=== PATIENT | male | born 1965 | race Caucasian/White ===

== ENCOUNTER → 2016-08-31 | Outpatient (CLI) | payer OTHER ==
[~2016-08-31] MED LIST: ASPEC81 PO; ASPI81TA28 PO; CLB200 PO; EPP3/2; HYDR-5688 PO; LISI-725 PO; LISI-787 PO; ONDA8TAB6 PO; SIMV20TA2 PO; VENL-271 PO; VENL150T33 PO
--- NOTE | 2016-08-31 10:09 | DIAGNOSTIC IMAGING REPORT ---
CT OF THE CHEST WITHOUT IV CONTRAST CLINICAL HISTORY: Pulmonary nodule. COMPARISON STUDY: Chest CT September 01, 2015 and March 04, 2016. CT DOSE: 697.60 mGycm TECHNIQUE: Axial images of the chest were obtained without IV contrast. Images were reviewed in the axial, sagittal, and coronal planes. IV contrast was not administered for this examination. FINDINGS: No enlarged axillary, mediastinal or hilar lymph nodes are present. Mild dilatation of the ascending aorta, measuring 4.1 cm, is unchanged. The size of the heart is normal. There is no pericardial effusion. Central airways are patent. Deformity of multiple left-sided ribs is again noted. Linear lingular and left lower lobe opacity is similar to prior exam and suggests atelectasis or scarring. A 4 mm right middle lobe nodule shown on image 148 of 342 is unchanged since chest CT of September 01, 2015. A 3 mm subpleural nodule within the right upper lobe shown on image 148 is also unchanged. There are no new nodules. No pneumothorax or pleural effusion is present. 1.2 cm hypodense right hepatic lobe lesion is suboptimal assessed on this unenhanced exam but is unchanged and likely benign. IMPRESSION: 1. No change in two right lung nodules measuring up to 4 mm. These are likely benign. A follow-up chest CT in one year is recommended to ensure stability. 2. Linear lingular and left lower lobe opacity which is similar to prior exams and suggests scarring or atelectasis. Electronically signed by: Milo Álvarez M.D. 08/31/2016 10:08 AM Dictated Date/Time: 08/31/2016 9:44 AM
== END | disposition home or self-care (01) ==
LOC: C.CTS 09:20
PROVIDERS: ATTEND Internal Medicine Pulmonary Disease
DX: R91.8 Other nonspecific abnormal finding of lung field (principal)

== ENCOUNTER → 2016-09-28 | Outpatient (CLI) | payer OTHER ==
[2016-09-28 12:47] LABS: CHOLESTEROL/HDL RATIO 3.4; PROSTATE SPECIFIC ANTIGEN 0.552 ng/ml (0.000-4.000)
[2016-09-28 12:56] LABS: ESTIMATED AVERAGE GLUCOSE 134 mg/dl; HA1C FLAG Normal (Normal)
== END | disposition home or self-care (01) ==
LOC: C.LABBFT 07:55
PROVIDERS: ATTEND Internal Medicine
DX: Z11.59 Encounter for screening for other viral diseases (principal); R73.01 Impaired fasting glucose; N52.9 Male erectile dysfunction, unspecified

== ENCOUNTER 2016-10-31 16:29 | Emergency (ER) | payer OTHER ==
[~2016-10-31] VITALS: Ht 177.8 cm; Wt 109.7 kg
[~2016-10-31 16:29] MED LIST changes: -ASPI81TA28 PO; -LISI-787 PO; -SIMV20TA2 PO; -VENL150T33 PO
[2016-10-31 16:47] VITALS: TEMP 36.7
[2016-10-31] MEDS ORDERED: SODIUM CHLORIDE 0.9% 1000ML 1,000 ML IV SCH (17:02)
[2016-10-31] MEDS ORDERED: OPTIRAY 320 IV PRN (17:15)
[2016-10-31 17:16] LABS: BASO % 0.6 %; BASO ABS # 0.04 K/uL (0-0.2); COMPLETE YES; EOS % 1.8 %; HEMATOCRIT 39.7 % (42-52); IG% 0.1 %; LYMPH % 32.1 %; LYMPH ABS # 2.15 K/uL (1.2-3.4); MEAN CELL VOLUME 86.9 fL (80-100); MEAN CORPUSCULAR HEMOGLOBIN 29.8 pg (25-34); MEAN CORPUSCULAR HGB CONC 34.3 g/dl (32-36); MEAN PLATELET VOLUME 11.2 fL (7.4-10.4); MONO % 6.6 %; NEUT % 58.8 %; PLATELET COUNT 204 K/uL (130-400); RED BLOOD COUNT 4.57 M/uL (4.7-6.1)
[2016-10-31 17:21] VITALS: O2SAT 98
--- NOTE | 2016-10-31 17:27 | DIAGNOSTIC IMAGING REPORT ---
HEAD CTA HISTORY: Mental status change stroke TECHNIQUE: Multiaxial CT images of the head were performed both before and after the intravenous administration of contrast to evaluate the major cerebral vessels. Maximum intensity projection images were also obtained. COMPARISON: None. FINDINGS: There is no mass, hematoma, midline shift, or acute infarct. Visualized intracranial internal carotid arteries, distal vertebral arteries, and basilar artery are widely patent. There is no significant stenosis, occlusion, or aneurysm seen within the bilateral ACAs, MCAs, or prop worker. IMPRESSION: No significant stenosis, occlusion, or aneurysm within the [place]. Negative unenhanced CT scan of the brain Electronically signed by: Steve Hudson M.D. 10/31/2016 5:25 PM Dictated Date/Time: 10/31/2016 5:22 PM
[2016-10-31 17:28] LABS: INR 0.9 (0.9-1.1); PARTIAL THROMBOPLASTIN RATIO 0.9; PROTHROMBIN TIME (PATIENT) 10.1 SECONDS (9.0-12.0)
--- NOTE | 2016-10-31 17:31 | DIAGNOSTIC IMAGING REPORT ---
NECK CTA HISTORY: Stroke mental status change TECHNIQUE: Multiaxial CT images of the neck were performed following the intravenous administration of contrast to evaluate the major cervical vessels. Maximum intensity projection images were also obtained. All measurements were calculated based on NASCET criteria. COMPARISON STUDY: None. FINDINGS: The aortic arch and proximal great vessels are widely patent. There is no significant stenosis, occlusion, or dissection identified within the bilateral common carotid, internal carotid, or vertebral arteries. Postoperative changes consistent with an anterior cervical fusion. No acute process of the cervical spine. IMPRESSION: No significant stenosis, occlusion, or dissection identified within the carotid or vertebral arteries. Electronically signed by: Steve Hudson M.D. 10/31/2016 5:29 PM Dictated Date/Time: 10/31/2016 5:26 PM
[2016-10-31] MEDS ORDERED: ASPI81TA28 PO (17:33)
[2016-10-31] MEDS ORDERED: VENL150T33 PO (17:33)
[2016-10-31] MEDS ORDERED: LISI-787 PO (17:33)
[2016-10-31] MEDS ORDERED: SIMV20TA2 PO (17:33)
[2016-10-31 17:36] LABS: ISTAT CREATININE 1.2 mg/dl (0.6-1.3); ISTAT HEMOGLOBIN 13.6 g/dl (14.0-18.0); ISTAT IONIZED CALCIUM 1.2 mmol/l (1.12-1.32)
[2016-10-31 17:47] LABS: BLOOD UREA NITROGEN 14 mg/dl (7-18); BUN/CREATININE RATIO 11.8 (10-20); CALCIUM 8.9 mg/dl (8.5-10.1); CARBON DIOXIDE 27 mmol/L (21-32); CHLORIDE 105 mmol/L (98-107); CKMB/CK RATIO 1.2 (0-3.0); GLUCOSE 95 mg/dl (70-99); POTASSIUM 3.8 mmol/L (3.5-5.1); SODIUM 139 mmol/L (136-145)
--- NOTE | 2016-10-31 17:50 | DIAGNOSTIC IMAGING REPORT ---
CHEST ONE VIEW PORTABLE CLINICAL HISTORY: Stroke dyspnea COMPARISON STUDY: 05/31/2011 FINDINGS: Small parenchymal infiltrate and/or atelectasis left midlung. Several old left-sided rib fractures. Right lung is clear. IMPRESSION: Parenchymal infiltrative and/or atelectatic changes left midlung. Electronically signed by: Steve Hudson M.D. 10/31/2016 5:48 PM Dictated Date/Time: 10/31/2016 5:47 PM
[2016-10-31 18:40] LABS: BENZODIAZEPINE, URINE NEG (NEG); COCAINE,URINE NEG (NEG); PHENCYCLIDINE, URINE NEG (NEG)
[2016-10-31] MEDS ORDERED: ASPIRIN 81 MG CHEW PO STA (19:39)
[2016-10-31 21:01] VITALS: Ht 177.8 cm; Wt 109.7 kg
[2016-10-31] MEDS ORDERED: GADAVIST IV PRN (22:15)
--- NOTE | 2016-10-31 22:34 | DIAGNOSTIC IMAGING REPORT ---
MRI OF THE BRAIN WITHOUT AND WITH IV CONTRAST CLINICAL HISTORY: TIA mental status change COMPARISON STUDY: No previous studies for comparison. TECHNIQUE: Utilizing a 1.5 Frida magnet and dedicated coil, multiplanar, multiecho imaging of the brain was performed pre and postcontrast administration. IV administration of 8 mL of Gadavist contrast was uneventful. FINDINGS: No evidence for an acute ischemic insult on diffusion-weighted images. Several very small foci of increased signal within the cerebellar as well as cerebral hemispheres suggesting chronic small vessel change. Several small cortical foci of increased signal inferior aspect left frontal lobe.. No evidence for abnormal postcontrast enhancement. Ventricular system is midline. No evidence for midline shift. Internal artery canals are symmetric. IMPRESSION: Minimal chronic small vessel change of aging. Otherwise negative study. No evidence for an acute ischemic event. Electronically signed by: Steve Hudson M.D. 10/31/2016 10:32 PM Dictated Date/Time: 10/31/2016 10:29 PM
[2016-10-31 23:08] VITALS: BP 131/89; PULSE 78; O2SAT 97
--- NOTE | 2016-10-31 23:28 | Medical Consult ---
Consultation Date of Consultation: Oct 31, 2016. Attending Physician: Dr. Negro Reason for Consultation: TIA/stroke like symptoms History of Present Illness 51-year-old male with past medical history of hypertension, borderline diabetes , head injury several years ago, degenerative arthritis of his left knee presented with complaints of numbness and tingling sensation on his face and left arm with started 2 hours prior to arrival. He also complains of mild headache and some neck stiffness however he denied any fevers or chills , nausea , vomiting. He denied any blurring of vision, diplopia, slurring of speech, weakness. Denies any drooping of his mouth, seizure episodes, gait changes . Denies any history of migraine, recent tick bites, rashes . He stated that he had a similar episode last week, at that time he had left- sided facial numbness and numbness in both his arms. He he was seen by his PCP at that time and was recommended to get an MRI and was started on aspirin and statin. He does have a history of head injury in 2013. He denies any chest pain, difficulty breathing, palpitations, dizziness. He does have a history of "irregular heartbeat" which is asymptomatic. He states that he had an echo last April which was essentially normal. Past Medical/Surgical History Hypertension, borderline diabetes, head injury, degenerative joint disease left knee. Family History Cancer Diabetes mellitus Heart disease Hypertension Lung disease Seizures Social History Smoking Status: Never Smoker Allergies Coded Allergies: Oxycodone (Verified Allergy, Severe, BAD HIVES-PER PT,ALLERGIC TO OXYCODONE CAN TAKE APAP/IBU/ASA, 10/31/16) Propoxyphene (Verified Allergy, Severe, HIVES RESP DISTRESS-PER PT, CAN TAKE APAP/ASA/IBU, 10/31/16) BEE STING (Verified Allergy, Mild, ANAPHYLACTIC, 10/31/16) Current Inpatient Medications Current Inpatient Medications Medications (Trade) Dose Ordered Sig/Homero Route Start Time Stop Time Status Last Admin Dose Admin Sodium Chloride (Nss 1000ml) 1,000 ml @ 50 mls/hr Q20H IV 10/31/16 17:02 11/30/16 17:01 10/31/16 17:02 50 MLS/HR Ioversol (Optiray 320) 100 ml UD PRN IV 10/31/16 17:15 11/04/16 17:14 Gadobutrol (Gadavist) 11 mmol UD PRN IV 10/31/16 22:15 11/04/16 22:14 Review of Systems Constitutional: No chills, No fever Eyes: No diplopia, No worsening of vision ENT: No hearing loss Respiratory: No cough, No sputum Cardiovascular: No chest pain Abdomen: No nausea, No pain, No vomiting Musculoskeletal: No joint pain Genitourinary - Male: No dysuria, No hematuria Neurologic: + numbness/tingling (face and left arm), No balance problems, No paralysis Psychiatric: No depression symptoms Endocrine: No fatigue Physical Exam Date Time Temp Pulse Resp B/P Pulse Ox O2 Delivery O2 Flow Rate FiO2 10/31/16 23:08 78 18 131/89 97 Room Air 10/31/16 22:38 86 16 131/87 99 10/31/16 21:29 84 15 93 10/31/16 21:01 Room Air 10/31/16 20:59 82 16 118/84 97 10/31/16 20:29 79 20 95 10/31/16 20:14 82 16 120/81 96 10/31/16 20:08 120/81 10/31/16 19:59 85 19 10/31/16 19:29 85 10 10/31/16 19:00 132/93 10/31/16 18:59 80 21 97 10/31/16 18:56 82 18 128/86 97 Room Air 10/31/16 18:45 128/86 10/31/16 18:30 136/88 10/31/16 18:29 80 22 98 10/31/16 18:15 135/82 10/31/16 18:00 129/80 10/31/16 17:59 86 20 93 10/31/16 17:48 84 10/31/16 17:45 132/81 10/31/16 17:42 83 16 126/79 95 Room Air 10/31/16 17:21 98 Room Air 10/31/16 16:47 36.7 98 18 133/83 92 Room Air General Appearance: WD/WN, no apparent distress Head: normocephalic Eyes: normal inspection ENT: normal ENT inspection, hearing grossly normal Neck: supple Respiratory/Chest: chest non-tender, lungs clear, normal breath sounds, no respiratory distress, no accessory muscle use Cardiovascular: regular rate, rhythm, no edema Abdomen/GI: normal bowel sounds, non tender, soft Back: normal inspection Extremities/Musculoskelatal: normal inspection, no calf tenderness, no pedal edema Neurologic/Psych: flatwork tier II-XII nml as tested, alert, normal mood/affect, oriented x 3 Skin: normal color Laboratory Results Last 24 Hours Test 10/31/16 16:50 10/31/16 16:57 10/31/16 17:06 10/31/16 17:20 White Blood Count 6.70 K/uL Red Blood Count 4.57 M/uL Hemoglobin 13.6 g/dL Hematocrit 39.7 % Mean Corpuscular Volume 86.9 fL Mean Corpuscular Hemoglobin 29.8 pg Mean Corpuscular Hemoglobin Concent 34.3 g/dl Platelet Count 204 K/uL Mean Platelet Volume 11.2 fL Neutrophils (%) (Auto) 58.8 % Lymphocytes (%) (Auto) 32.1 % Monocytes (%) (Auto) 6.6 % Eosinophils (%) (Auto) 1.8 % Basophils (%) (Auto) 0.6 % Neutrophils # (Auto) 3.94 K/uL Lymphocytes # (Auto) 2.15 K/uL Monocytes # (Auto) 0.44 K/uL Eosinophils # (Auto) 0.12 K/uL Basophils # (Auto) 0.04 K/uL RDW Standard Deviation 46.4 fL RDW Coefficient of Variation 15.0 % Immature Granulocyte % (Auto) 0.1 % Immature Granulocyte # (Auto) 0.01 K/uL Prothrombin Time 10.1 SECONDS Prothromb Time International Ratio 0.9 Activated Partial Thromboplast Time 23.4 SECONDS Partial Thromboplastin Ratio 0.9 Sodium Level 139 mmol/L Potassium Level 3.8 mmol/L Chloride Level 105 mmol/L Carbon Dioxide Level 27 mmol/L Anion Gap 7.0 mmol/L 18.0 mmol/L Blood Urea Nitrogen 14 mg/dl Creatinine 1.20 mg/dl Est Creatinine Clear Calc Drug Dose 89.3 ml/min Estimated GFR () 80.1 Estimated GFR (Non- 69.1 BUN/Creatinine Ratio 11.8 Random Glucose 95 mg/dl Calcium Level 8.9 mg/dl Total Creatine Kinase 239 U/L Creatine Kinase MB 2.8 ng/ml Creatine Kinase MB Ratio 1.2 Troponin I < 0.015 ng/ml Chemistry Specimen Hemolysis Bedside Prothrombin Time INR 0.9 Bedside Glucose 105 mg/dl Bedside Hemoglobin 13.6 g/dl Bedside Hematocrit 40 % Bedside Sodium 140 mEq/L Bedside Potassium 3.8 mEq/L Bedside Chloride 102 mEq/L Bedside Total CO2 25 mEq/l Bedside Blood Urea Nitrogen 15 mg/dl Bedside Creatinine 1.2 mg/dl Bedside Glucose (other) 89 mg/dl Bedside Ionized Calcium (Edgard) 1.20 mmol/l Urine Opiates Screen NEG Urine Methadone, Qualitative NEG Urine Barbiturates NEG Urine Phencyclidine (PCP) Level NEG Ur Amphetamine/Methamphetamine NEG MDMA (Ecstasy) Screen NEG Urine Benzodiazepines Screen NEG Urine Cocaine Metabolite NEG Urine Marijuana (THC) NEG Test 10/31/16 20:58 CHEST ONE VIEW PORTABLE CLINICAL HISTORY: Stroke dyspnea COMPARISON STUDY: 05/31/2011 FINDINGS: Small parenchymal infiltrate and/or atelectasis left midlung. Several old left-sided rib fractures. Right lung is clear. IMPRESSION: Parenchymal infiltrative and/or atelectatic changes left midlung. [~ rep ct add3]] NECK CTA HISTORY: Stroke mental status change TECHNIQUE: Multiaxial CT images of the neck were performed following the intravenous administration of contrast to evaluate the major cervical vessels. Maximum intensity projection images were also obtained. All measurements were calculated based on NASCET criteria. COMPARISON STUDY: None. FINDINGS: The aortic arch and proximal great vessels are widely patent. There is no significant stenosis, occlusion, or dissection identified within the bilateral common carotid, internal carotid, or vertebral arteries. Postoperative changes consistent with an anterior cervical fusion. No acute process of the cervical spine. IMPRESSION: No significant stenosis, occlusion, or dissection identified within the carotid or vertebral arteries. Electronically signed by: Steve Hudson M.D. 10/31/2016 5:29 PM Dictated Date/Time: 10/31/2016 5:26 PM [~ rep ct add3]] HEAD CTA HISTORY: Mental status change stroke TECHNIQUE: Multiaxial CT images of the head were performed both before and after the intravenous administration of contrast to evaluate the major cerebral vessels. Maximum intensity projection images were also obtained. COMPARISON: None. FINDINGS: There is no mass, hematoma, midline shift, or acute infarct. Visualized intracranial internal carotid arteries, distal vertebral arteries, and basilar artery are widely patent. There is no significant stenosis, occlusion, or aneurysm seen within the bilateral ACAs, MCAs, or plant safety engineer. IMPRESSION: No significant stenosis, occlusion, or aneurysm within the [place]. Negative unenhanced CT scan of the brain Electronically signed by: Steve Hudson M.D. 10/31/2016 5:25 PM Dictated Date/Time: 10/31/2016 5:22 PM [~ rep ct add3]] MRI OF THE BRAIN WITHOUT AND WITH IV CONTRAST CLINICAL HISTORY: TIA mental status change COMPARISON STUDY: No previous studies for comparison. TECHNIQUE: Utilizing a 1.5 Frida magnet and dedicated coil, multiplanar, multiecho imaging of the brain was performed pre and postcontrast administration. IV administration of 8 mL of Gadavist contrast was uneventful. FINDINGS: No evidence for an acute ischemic insult on diffusion-weighted images. Several very small foci of increased signal within the cerebellar as well as cerebral hemispheres suggesting chronic small vessel change. Several small cortical foci of increased signal inferior aspect left frontal lobe.. No evidence for abnormal postcontrast enhancement. Ventricular system is midline. No evidence for midline shift. Internal artery canals are symmetric. IMPRESSION: Minimal chronic small vessel change of aging. Otherwise negative study. No evidence for an acute ischemic event. Electronically signed by: Steve Hudson M.D. 10/31/2016 10:32 PM Dictated Date/Time: 10/31/2016 10:29 PM Assessment & Plan 51-year-old male with past medical history of hypertension, borderline diabetes , head injury in 2013 presented with strokelike symptoms which involved numbness in his face and on his left arm. He had a similar episode last week and his PCP had recommended an MRI and started him on aspirin and statin. His MRI however wasn't completed. He presented today with similar symptoms and Telemetry stroke consult was made with Shelli who also recommended a brain MRI , aspirin and stroke workup. The patient declined admission and only wanted to get an MRI as he felt that his symptoms had resolved. TIA: - Head CTA: No significant stenosis, occlusion, or aneurysm within the [place]. Negative unenhanced CT scan of the brain - CTA neck: No significant stenosis, occlusion, or dissection identified within the carotid or vertebral arteries - Chest x-ray: Parenchymal infiltrative and/or atelectatic changes left midlung - Brain MRI: Minimal chronic small vessel change of aging. Otherwise negative study. No evidence for an acute ischemic event. - Urine toxicology negative - Hypercoagulable workup including homocysteine, beta-2 microglobulin, antiphospholipid, lupus anticoagulant, anticardiolipin ordered - Continue aspirin 81 mg - Continue statin - Continue lisinopril/hydrochlorothiazide He was recommended to follow up with his primary care physician Dr. Savage and return to the ER if he experienced similar symptoms, weakness, headache, numbness or tingling. He will require further workup including a Holter monitor, echo. Hypercoagulable workup has been sent and is currently pending. Additional Copies To Pato Savage M.D. Resident Tracking Resident Involvement: Resident Care Provided Care Provided: [facility] Medicine Assessment and Plan Attending Addendum: I have physically seen and examined this patient, have directed their medical care, have supervised the medical residents activities, and agree with the H&P as noted above, with the following changes: NONE
--- NOTE | 2016-10-31 23:38 | EMERGENCY ROOM VISIT NOTE ---
History Report prepared by Ciaran: Cale Estevez Under the Supervision of: Dr. Umair James M.D. First contact with patient: 16:52 Chief Complaint: STROKE SYMPTOMS Stated Complaint: TIA/STROKE Nursing Triage Summary: Patient c/o of left sided weakness, slurring, left facial drooping. History of Present Illness The patient is a 51 year old male who presents to the Emergency Room with complaints of sudden left sided facial numbness beginning two hours prior to arrival. He associates lip numbness, left sided body numbness, neck stiffness, and a headache with today's symptoms. The patient states he experienced lip numbness at 1445 that spread to the left side of his face and arm. He notes he had a similar episode five days ago, in which he experienced left sided facial numbness, numbness in both arms, and numbness in his chest. The patient states he noticed neck stiffness following his episode last week, and he woke up with some neck stiffness this morning. He notes he also experienced a headache following last week's episode, and he also is currently experiencing a headache that began this morning. The patient states he saw his PCP last week, who ordered an MRI with concern for a TIA. He notes his legs do not feel weak. The patient states he had a severe head injury in 2013. As per , the patient appears to be moving his mouth less with speech. The patient notes he is borderline diabetic and has hypertension. Pt denies LOC, fevers, chills, diaphoresis, visual changes, chest pain, breathing difficulties, nausea, vomiting, abdominal pain, back pain, melena, hematochezia, urinary symptoms, weakness, lymphadenopathy, rash, or other complaints. 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 A total of ten systems were reviewed and were otherwise negative. Past Medical & Surgical Medical Problems: (1) Borderline diabetes (2) Degenerative joint disease of left knee (3) Flexion contracture of left knee (4) Hypertension (5) Left knee pain (6) Osteoarthritis of left knee Family History Cancer Diabetes mellitus Heart disease Hypertension Lung disease Seizures Social History Smoking Status: Never Smoker Marital Status: Occupation Status: employed Current/Historical Medications Scheduled Aspirin (Aspirin Ec), 81 MG PO DAILY Lisinopril/Hctz (Zestoretic 20MG/12.5MG), 1 TAB PO BID Simvastatin (Zocor), 20 MG PO QPM Venlafaxine Hcl (Venlafaxine Hcl Er), 150 MG PO DAILY Scheduled PRN Epinephrine (Epipen 2-Francisco), for ALLERGIC REACTION Hydrocodone/Acetaminophen 5MG/325MG ([place] 5MG/325MG), 1-2 TAB PO Q4HWA PRN for Pain Ondansetron Hcl (Zofran), 8 MG PO Q8H PRN for Nausea Allergies Coded Allergies: Oxycodone (Verified Allergy, Severe, BAD HIVES-PER PT,ALLERGIC TO OXYCODONE CAN TAKE APAP/IBU/ASA, 10/31/16) Propoxyphene (Verified Allergy, Severe, HIVES RESP DISTRESS-PER PT, CAN TAKE APAP/ASA/IBU, 10/31/16) BEE STING (Verified Allergy, Mild, ANAPHYLACTIC, 10/31/16) Physical Exam Vital Signs Date Time Temp Pulse Resp B/P Pulse Ox O2 Delivery O2 Flow Rate FiO2 10/31/16 23:08 78 18 131/89 97 Room Air 10/31/16 22:38 86 16 131/87 99 10/31/16 21:29 84 15 93 10/31/16 21:01 Room Air 10/31/16 20:59 82 16 118/84 97 10/31/16 20:29 79 20 95 10/31/16 20:14 82 16 120/81 96 10/31/16 20:08 120/81 10/31/16 19:59 85 19 10/31/16 19:29 85 10 10/31/16 19:00 132/93 10/31/16 18:59 80 21 97 10/31/16 18:56 82 18 128/86 97 Room Air 10/31/16 18:45 128/86 10/31/16 18:30 136/88 10/31/16 18:29 80 22 98 10/31/16 18:15 135/82 10/31/16 18:00 129/80 10/31/16 17:59 86 20 93 10/31/16 17:48 84 10/31/16 17:45 132/81 10/31/16 17:42 83 16 126/79 95 Room Air 10/31/16 17:21 98 Room Air 10/31/16 16:47 36.7 98 18 133/83 92 Room Air Physical Exam GENERAL: Awake, alert, well appearing, no distress HENT: Normocephalic, atraumatic. TM's normal. Oropharynx unremarkable. EYES: PERRL. EOMI. Normal conjunctiva. Sclera non-icteric. NECK: Supple. No nuchal rigidity. FROM. No JVD or bruit. RESPIRATORY: CTA CARDIAC: RRR. No murmur. ABDOMEN: Soft, non distended. No tenderness to palpation. No rebound or guarding. No masses. RECTAL: Deferred. MUSCULOSKELETAL: Unremarkable. No edema. No discoloration. Gross motor strength symmetric. NEURO: Cranial nerves 2-12 grossly intact except diminished sensation on left side of face. Normal sensorium. Subjective numbness and tingling in the left arm and leg. No sensory or motor deficits noted. Speech normal. No pronator drift. Normal rapid alternating hand movements. SKIN: No rash or jaundice noted. LYMPH: No adenopathy. Medical Decision & Procedures ER Provider Diagnostic Interpretation: X ray results as stated below per my interpretation and radiologist interpretation. Other radiology results as stated below per my review and radiologist interpretation CHEST ONE VIEW PORTABLE CLINICAL HISTORY: Stroke dyspnea COMPARISON STUDY: 05/31/2011 FINDINGS: Small parenchymal infiltrate and/or atelectasis left midlung. Several old left-sided rib fractures. Right lung is clear. IMPRESSION: Parenchymal infiltrative and/or atelectatic changes left midlung. Electronically signed by: Steve Hudson M.D. 10/31/2016 5:48 PM NECK CTA HISTORY: Stroke mental status change TECHNIQUE: Multiaxial CT images of the neck were performed following the intravenous administration of contrast to evaluate the major cervical vessels. Maximum intensity projection images were also obtained. All measurements were calculated based on NASCET criteria. COMPARISON STUDY: None. FINDINGS: The aortic arch and proximal great vessels are widely patent. There is no significant stenosis, occlusion, or dissection identified within the bilateral common carotid, internal carotid, or vertebral arteries. Postoperative changes consistent with an anterior cervical fusion. No acute process of the cervical spine. IMPRESSION: No significant stenosis, occlusion, or dissection identified within the carotid or vertebral arteries. Electronically signed by: Steve Hudson M.D. 10/31/2016 5:29 PM HEAD CTA HISTORY: Mental status change stroke TECHNIQUE: Multiaxial CT images of the head were performed both before and after the intravenous administration of contrast to evaluate the major cerebral vessels. Maximum intensity projection images were also obtained. COMPARISON: None. FINDINGS: There is no mass, hematoma, midline shift, or acute infarct. Visualized intracranial internal carotid arteries, distal vertebral arteries, and basilar artery are widely patent. There is no significant stenosis, occlusion, or aneurysm seen within the bilateral ACAs, MCAs, or hr manager. IMPRESSION: No significant stenosis, occlusion, or aneurysm within the [place]. Negative unenhanced CT scan of the brain Electronically signed by: Steve Hudson M.D. 10/31/2016 5:25 PM MRI OF THE BRAIN WITHOUT AND WITH IV CONTRAST CLINICAL HISTORY: TIA mental status change COMPARISON STUDY: No previous studies for comparison. TECHNIQUE: Utilizing a 1.5 Frida magnet and dedicated coil, multiplanar, multiecho imaging of the brain was performed pre and postcontrast administration. IV administration of 8 mL of Gadavist contrast was uneventful. FINDINGS: No evidence for an acute ischemic insult on diffusion-weighted images. Several very small foci of increased signal within the cerebellar as well as cerebral hemispheres suggesting chronic small vessel change. Several small cortical foci of increased signal inferior aspect left frontal lobe.. No evidence for abnormal postcontrast enhancement. Ventricular system is midline. No evidence for midline shift. Internal artery canals are symmetric. IMPRESSION: Minimal chronic small vessel change of aging. Otherwise negative study. No evidence for an acute ischemic event. Electronically signed by: Steve Hudson M.D. 10/31/2016 10:32 PM Laboratory Results 10/31/16 16:50 Red Blood Count 4.57, Mean Corpuscular Volume 86.9, Mean Corpuscular Hemoglobin 29.8, Mean Corpuscular Hemoglobin Concent 34.3, Mean Platelet Volume 11.2, Neutrophils (%) (Auto) 58.8, Lymphocytes (%) (Auto) 32.1, Monocytes (%) (Auto) 6.6, Eosinophils (%) (Auto) 1.8, Basophils (%) (Auto) 0.6, Neutrophils # (Auto) 3.94, Lymphocytes # (Auto) 2.15, Monocytes # (Auto) 0.44, Eosinophils # (Auto) 0.12, Basophils # (Auto) 0.04 10/31/16 16:50 Test 10/31/16 16:50 10/31/16 16:57 10/31/16 17:06 10/31/16 17:20 White Blood Count 6.70 K/uL (4.8-10.8) Red Blood Count 4.57 M/uL (4.7-6.1) Hemoglobin 13.6 g/dL (14.0-18.0) Hematocrit 39.7 % (42-52) Mean Corpuscular Volume 86.9 fL (80-100) Mean Corpuscular Hemoglobin 29.8 pg (25-34) Mean Corpuscular Hemoglobin Concent 34.3 g/dl (32-36) Platelet Count 204 K/uL (130-400) Mean Platelet Volume 11.2 fL (7.4-10.4) Neutrophils (%) (Auto) 58.8 % Lymphocytes (%) (Auto) 32.1 % Monocytes (%) (Auto) 6.6 % Eosinophils (%) (Auto) 1.8 % Basophils (%) (Auto) 0.6 % Neutrophils # (Auto) 3.94 K/uL (1.4-6.5) Lymphocytes # (Auto) 2.15 K/uL (1.2-3.4) Monocytes # (Auto) 0.44 K/uL (0.11-0.59) Eosinophils # (Auto) 0.12 K/uL (0-0.5) Basophils # (Auto) 0.04 K/uL (0-0.2) RDW Standard Deviation 46.4 fL (36.4-46.3) RDW Coefficient of Variation 15.0 % (11.5-14.5) Immature Granulocyte % (Auto) 0.1 % Immature Granulocyte # (Auto) 0.01 K/uL (0.00-0.02) Prothrombin Time 10.1 SECONDS (9.0-12.0) Prothromb Time International Ratio 0.9 (0.9-1.1) Activated Partial Thromboplast Time 23.4 SECONDS (21.0-31.0) Partial Thromboplastin Ratio 0.9 Est Creatinine Clear Calc Drug Dose 89.3 ml/min Estimated GFR () 80.1 Estimated GFR (Non- 69.1 BUN/Creatinine Ratio 11.8 (10-20) Calcium Level 8.9 mg/dl (8.5-10.1) Total Creatine Kinase 239 U/L (39-308) Creatine Kinase MB 2.8 ng/ml (0.5-3.6) Creatine Kinase MB Ratio 1.2 (0-3.0) Troponin I < 0.015 ng/ml (0-0.045) Chemistry Specimen Hemolysis Bedside Prothrombin Time INR 0.9 (0.9-1.1) Bedside Glucose 105 mg/dl (70-99) Bedside Hemoglobin 13.6 g/dl (14.0-18.0) Bedside Hematocrit 40 % (42-52) Bedside Sodium 140 mEq/L (135-144) Bedside Potassium 3.8 mEq/L (3.3-5.0) Bedside Chloride 102 mEq/L (101-112) Bedside Total CO2 25 mEq/l (24-31) Anion Gap 18.0 mmol/L (16-25) Bedside Blood Urea Nitrogen 15 mg/dl (7-18) Bedside Creatinine 1.2 mg/dl (0.6-1.3) Bedside Glucose (other) 89 mg/dl (70-99) Bedside Ionized Calcium (Edgard) 1.20 mmol/l (1.12-1.32) Urine Opiates Screen NEG (NEG) Urine Methadone, Qualitative NEG (NEG) Urine Barbiturates NEG (NEG) Urine Phencyclidine (PCP) Level NEG (NEG) Ur Amphetamine/Methamphetamine NEG (NEG) MDMA (Ecstasy) Screen NEG (NEG) Urine Benzodiazepines Screen NEG (NEG) Urine Cocaine Metabolite NEG (NEG) Urine Marijuana (THC) NEG (NEG) Test 10/31/16 20:58 Laboratory results reviewed by me Medications Administered Medications (Trade) Dose Ordered Sig/Homero Route Start Time Stop Time Status Last Admin Dose Admin Sodium Chloride (Nss 1000ml) 1,000 ml @ 50 mls/hr Q20H IV 10/31/16 17:02 10/31/16 23:26 DC 10/31/16 17:02 50 MLS/HR Aspirin (Aspirin Chew) 324 mg NOW STAT PO 10/31/16 19:39 10/31/16 19:40 DC 10/31/16 20:16 324 MG ECG Indication: other (stroke-like symptoms) Rate (beats per minute): 96 Rhythm: normal sinus Findings: nonspecific-ST abn, no acute ischemic change, no ectopy ED Course 1653: The patient was evaluated in room B1. A complete history and physical exam was performed. 1700: Shelli Sandhu Neurology was paged for Telestroke. 1701: Ordered Sodium Chloride 1,000 ml @ 50 mls/hr IV. 1814: Reevaluated the patient at this time, and he states his arm and leg are feeling better. He notes his face numbness is improving, as well. Dr. Titus will evaluate the patient via Telestroke. 1822: I spoke to Shelli Sandhu Neurology about the patient's case, and he will evaluate the patient via Telestroke. 1852: I spoke to Shelli Sandhu Neurology about the patients case, and he recommended an MRI, aspirin, and to finish the stroke work up. 1910: I spoke to MARKY Martinez (Hospitalist) about the patients case, and she will follow the patient for further evaluation. 1938: Ordered Aspirin 324 mg PO. 2027: Reevaluated the patient at this time, and MARKY Alejandre ( Hospitalist) is evaluating him. The patient does not want to stay but would like to get imaging done. 2299: I reevaluated the patient. Discussed results and discharge instructions: He verbalized understanding and agreement. The patient is ready for discharge. Medical Decision Triage Nursing notes reviewed. The patient's presentation and history were concerning for strokelike symptoms. Etiologies such as CVA, TIA, metabolic, infection, hypo/hyperglycemia, electrolyte abnormalities, cardiac sources, intracerebral event, toxicologic, neurologic, as well as others were entertained. The patient was evaluated. He had stroke like symptoms. A stroke alert was initiated. Patient had an unremarkable CBC, chemistry panel, cardiac markers, and urine drug screen. His CT of the head, CT angiogram of the head and neck, ECG, and x-ray were unremarkable. He was evaluated by Shelli farr-stroke. MRI and aspirin were recommended. The patient declined admission. He was evaluated by Dr. Eduar Mattson from internal medicine for medical consultation. They ordered the MRI. This was negative. The patient was reassessed and was asymptomatic. I did discuss the risks and benefits of staying in the hospital and going home. The patient does not want to stay in the hospital as he is feeling good at this point time. He is under standing the risk of stroke as well as disability and/or . The patient will follow- up with his primary physician. If he worsens or has recurrent symptoms she will come back. I gave my usual and customary discussion regarding this issue. By the evaluation outlined above other emergent etiologies such as those listed in the differential, as well as others, were deemed relatively unlikely. The patient and significant other were informed about the findings as listed above. All questions were answered and they were pleased with the treatment. Return instructions were outlined and the patient was discharged in stable condition. The patient was referred to his PCP for follow-up tomorrow for a recheck of the current condition. The chart was completed utilizing [employer] Speech voice recognition software. Grammatical errors, random word insertions, pronoun errors, and incomplete sentences are an occasional consequence of this system due to software limitations, ambient noise, and hardware issues. Any formal questions or concerns about the content, text, or information contained within the body of this dictation should be directly addressed to the physician for clarification. Consults Time Called: 1700 Consulting Physician: Shelli Sandhu Neurology Returned Call: 1822 I spoke to Shelli Sandhu about the patient's case, and he will evaluate the patient via Telestroke. Additional Consults: Time Called: 1850 Consulted Physician: Shelli Sandhu Neurology Returned Call: 1852 Additional Comments: I spoke to Shelli Sandhu Neurology about the patients case, and he recommended an MRI, aspirin, and to finish the stroke work up. Time Called: 1908 Consulted Physician: MARKY Martinez (Hospitalist) Returned Call: 1910 Additional Comments: I spoke to MARKY Martinez (Hospitalist) about the patients case, and she will follow the patient for further evaluation. Impression Primary Impression: Stroke-like symptoms Additional Impressions: Facial numbness Left sided numbness Scribe Attestation The scribe's documentation has been prepared under my direction and personally reviewed by me in its entirety. I confirm that the note above accurately reflects all work, treatment, procedures, and medical decision making performed by me. Departure Information Dispostion Home / Self-Care Referrals Pato Savage M.D. (PCP) Forms HOME CARE DOCUMENTATION FORM, IMPORTANT VISIT INFORMATION Patient Instructions My [facility] Additional Instructions Rest today in a quiet, peaceful, dark environment and get a full 8-10 hrs of sleep tonight. Continue current medications. Acetaminophen(Tylenol) may be used for fever or pain. Use 1000mg every six hours as needed. Avoid using more than 4000mg in a 24 hour period. Return to the ER for passing out, worsening numbness, weakness, headache, vision problems, neck stiffness/pain, fevers, vomiting, worsening of your condition, or as needed. Follow up with your primary physician tomorrow for a recheck of your current condition. Stroke History Time Last Known Well 1445 on 10/31/2016 Stroke t-PA Criteria Reviewed Does NOT meet criteria for t-PA Reason t-PA Not Given Treatment not indicated (Rapidly improving symptoms) Problem Qualifiers
[2016-11-03 14:27] LABS: B2 GLYCOPROTEIN IGA <9 SAU (<=20); B2 GLYCOPROTEIN IGG <9 SGU (<=20); B2 GLYCOPROTEIN IGM <9 SMU (<=20); DRVVT MIX INTERPRETAION Not Indicated; LAC PTT SCREEN 32 sec (<=40); LUPUS ANTICOAGULANT** TC36573X Negative (Negative); PHOSPHATIDYLSERINE IGA <20 U/mL (<20); PHOSPHATIDYLSERINE IGG <10 U/mL (<10); PHOSPHATIDYLSERINE IGM <25 U/mL (<25)
[2017-06-26] MEDS ORDERED: GABA-113 PO (14:16)
[2017-06-26] MEDS ORDERED: METF-384 PO (14:16)
== END 2016-10-31 23:10 | disposition home or self-care (01) ==
LOC: C.EDB 16:30
DX: I63.9 Cerebral infarction, unspecified (principal); R20.2 Paresthesia of skin; R73.03 Prediabetes; M17.9 Osteoarthritis of knee, unspecified; I10 Essential (primary) hypertension; Z83.3 Family history of diabetes mellitus; Z82.49 Family history of ischemic heart disease and other diseases of the circulatory system; Z82.0 Family history of epilepsy and other diseases of the nervous system; Z79.82 Long term (current) use of aspirin

== ENCOUNTER → 2016-11-02 | Outpatient (CLI) | payer OTHER ==
[~2016-11-02] MED LIST changes: -ASPEC81 PO; +ASPI81TA28 PO; -CLB200 PO; +GABA-113 PO; -LISI-725 PO; +LISI-787 PO; +METF-384 PO; +SIMV20TA2 PO; -VENL-271 PO; +VENL150T33 PO
[2016-11-02 13:19] LABS: LYME DISEASE AB IGG NEG (NEG); LYME DISEASE AB IGM NEG (NEG)
== END | disposition home or self-care (01) ==
LOC: C.LABBFT 10:21
PROVIDERS: ATTEND Nurse Practitioner
DX: R20.0 Anesthesia of skin (principal)

== ENCOUNTER → 2016-11-24 | Outpatient (CLI) | payer OTHER ==
[~2016-11-24] MED LIST changes: +GADAVIST IV PRN
--- NOTE | 2016-11-24 08:20 | DIAGNOSTIC IMAGING REPORT ---
MRI OF THE CERVICAL SPINE WITH AND WITHOUT CONTRAST CLINICAL HISTORY: Degeneration of cervical intervertebral disc. Extremity numbness. COMPARISON: MRI of the cervical spine May 21, 2008 and cervical spine radiographs May 31, 2011. TECHNIQUE: Utilizing a 1.5 Frida magnet and dedicated coil, multiplanar, multiecho imaging of the cervical spine was performed before and after intravenous administration of 11 of Gadavist. FINDINGS: There is 2 mm anterolisthesis of C7 on T1. There are findings consistent with C5-C6 and C6-C7 discectomies with anterior fusion. Cervical signal and caliber are normal. There is no intracanalicular mass or fluid collection. Paravertebral soft tissues are unremarkable. C2-C3: The central canal and neural foramen are patent. C3-C4: Disc bulge with a small right posterior disc protrusion results in mild narrowing of the right aspect of the canal. There is severe right neural foraminal narrowing due to uncovertebral hypertrophy and facet arthrosis. There is moderate left neural foraminal narrowing. C4-C5: There is disc bulge with a central annular tear. There is a left posterior central disc protrusion. There is mild to moderate narrowing of the left aspect of the canal. Moderate left neural foraminal stenosis. C5-C6: Central canal and neural foramen are patent. C6-C7: Central canal and neural foramen are patent. C7-T1: Central canal is patent. The neural foramen are patent. IMPRESSION: 1. Status post C5-C7 anterior discectomy and fusion. 2. Multilevel degenerative disc disease, most pronounced at C3-C4 and C4-C5, as described above, with mild to moderate central canal stenosis and multilevel neural foraminal stenosis. 3. Normal cervical cord signal and caliber. Electronically signed by: Milo Álvarez M.D. 11/24/2016 8:18 AM Dictated Date/Time: 11/24/2016 8:04 AM
== END | disposition home or self-care (01) ==
LOC: C.MRI 06:45
PROVIDERS: ATTEND Physician Assistant
DX: M50.30 Other cervical disc degeneration, unspecified cervical region (principal); Z98.1 Arthrodesis status

== ENCOUNTER → 2016-11-29 | Outpatient (CLI) | payer OTHER ==
[~2016-11-29] MED LIST changes: -GADAVIST IV PRN
[2016-11-29 17:43] LABS: ALT/SGPT 32 U/L (12-78); AST/SGOT 19 U/L (15-37)
== END | disposition home or self-care (01) ==
LOC: C.LABBFT 09:00
PROVIDERS: ATTEND Nurse Practitioner
DX: G45.9 Transient cerebral ischemic attack, unspecified (principal)

== ENCOUNTER → 2017-04-06 | Outpatient (CLI) | payer OTHER ==
[~2017-04-06] MED LIST changes: -GABA-113 PO; -METF-384 PO; -ONDA8TAB6 PO
[2017-04-06 12:25] LABS: BASO % 0.7 %; BASO ABS # 0.03 K/uL (0-0.2); COMPLETE YES; HEMATOCRIT 38.9 % (42-52); IG% 0.2 %; LYMPH % 28.2 %; LYMPH ABS # 1.29 K/uL (1.2-3.4); MEAN CELL VOLUME 92.8 fL (80-100); MEAN CORPUSCULAR HEMOGLOBIN 31.3 pg (25-34); MEAN CORPUSCULAR HGB CONC 33.7 g/dl (32-36); MEAN PLATELET VOLUME 11.7 fL (7.4-10.4); MONO % 7.6 %; NEUT % 58.3 %; PLATELET COUNT 219 K/uL (130-400); RED BLOOD COUNT 4.19 M/uL (4.7-6.1); WHITE BLOOD COUNT 4.58 K/uL (4.8-10.8)
[2017-04-06 12:30] LABS: URINE APPEARANCE CLEAR (CLEAR); URINE BILIRUBIN NEG (NEG); URINE COLOR YELLOW; URINE EPITHELIAL CELL AUTO 0-5 /lpf (0-5); URINE NITRITE NEG (NEG); URINE PH 7.5 (4.5-7.5); URINE SPECIFIC GRAVITY 1.018 (1.000-1.030); UROBILINOGEN NEG (NEG); ZZUR CULT IF INDIC CLEAN CATCH NO
[2017-04-06 12:37] LABS: MANUAL MICROSCOPIC REQUIRED? NO; REVIEW REQ? NO
[2017-04-06 13:02] LABS: ESTIMATED AVERAGE GLUCOSE 131 mg/dl; HA1C FLAG Normal (Normal)
[2017-04-06 13:13] LABS: ALT/SGPT 36 U/L (12-78); BLOOD UREA NITROGEN 11 mg/dl (7-18); BUN/CREATININE RATIO 9.5 (10-20); CALCIUM 9.1 mg/dl (8.5-10.1); CARBON DIOXIDE 29 mmol/L (21-32); CHLORIDE 105 mmol/L (98-107); CHOLESTEROL 184 mg/dl (0-200); GLUCOSE 106 mg/dl (70-99); POTASSIUM 4.2 mmol/L (3.5-5.1); SODIUM 139 mmol/L (136-145)
[2017-04-06 13:16] LABS: ALB/GLOB RATIO 1.1 (0.9-2); ALKALINE PHOSPHATASE 59 U/L (45-117); AST/SGOT 21 U/L (15-37); CHOLESTEROL/HDL RATIO 3.4; HDL CHOLESTEROL 54 mg/dl; LDL CHOLESTEROL CALCULATED 114 mg/dl; TRIGLYCERIDES 81 mg/dl (0-150); VERY LOW DENSITY LIPOPROT CALC 16 mg/dl
== END | disposition home or self-care (01) ==
LOC: C.LABBFT 07:47
PROVIDERS: ATTEND Internal Medicine
DX: R73.01 Impaired fasting glucose (principal); G45.9 Transient cerebral ischemic attack, unspecified

== ENCOUNTER → 2017-04-10 | Outpatient (CLI) | payer OTHER ==
[2017-04-10 12:30] LABS: FERRITIN 21.5 ng/ml (8.0-388.0)
[2017-04-10 12:38] LABS: ALT/SGPT 34 U/L (12-78); BLOOD UREA NITROGEN 9 mg/dl (7-18); BUN/CREATININE RATIO 8.4 (10-20); CALCIUM 9.1 mg/dl (8.5-10.1); CARBON DIOXIDE 27 mmol/L (21-32); CHLORIDE 103 mmol/L (98-107); GLUCOSE 100 mg/dl (70-99); POTASSIUM 3.9 mmol/L (3.5-5.1); SODIUM 137 mmol/L (136-145)
[2017-04-10 12:45] LABS: ALB/GLOB RATIO 1.2 (0.9-2); ALKALINE PHOSPHATASE 55 U/L (45-117); AST/SGOT 19 U/L (15-37)
[2017-04-10 12:57] LABS: ESTIMATED AVERAGE GLUCOSE 126 mg/dl; HA1C FLAG Normal (Normal)
== END | disposition home or self-care (01) ==
LOC: C.LABBFT 09:16
PROVIDERS: ATTEND Internal Medicine
DX: R73.01 Impaired fasting glucose (principal)

== ENCOUNTER → 2017-04-20 | Outpatient (CLI) | payer OTHER | END | disposition home or self-care (01) | LOC: C.PATHSPEC 17:31 | PROVIDERS: ATTEND Plastic Surgery | DX: L72.0 Epidermal cyst (principal); D18.01 Hemangioma of skin and subcutaneous tissue ==

== ENCOUNTER → 2017-06-22 | Outpatient (CLI) | payer OTHER ==
[~2017-06-22] MED LIST changes: +GABA-113 PO; +METF-384 PO
== END | disposition home or self-care (01) ==
LOC: C.LABBFT 07:45
PROVIDERS: ATTEND Physician Assistant Medical
DX: Z86.14 Personal history of Methicillin resistant Staphylococcus aureus infection (principal)

== ENCOUNTER → 2017-06-23 | Outpatient (CLI) | payer OTHER ==
[2017-06-23 10:05] LABS: BASO % 1.3 %; BASO ABS # 0.08 K/uL (0-0.2); COMPLETE YES; EOS % 3.5 %; LYMPH ABS # 2.37 K/uL (1.2-3.4); MEAN CELL VOLUME 92.6 fL (80-100); MEAN CORPUSCULAR HEMOGLOBIN 31.8 pg (25-34); MEAN CORPUSCULAR HGB CONC 34.4 g/dl (32-36); MEAN PLATELET VOLUME 11.5 fL (7.4-10.4); MONO % 7.4 %; NEUT % 48.8 %; PLATELET COUNT 231 K/uL (130-400); RED BLOOD COUNT 4.21 M/uL (4.7-6.1); WHITE BLOOD COUNT 6.08 K/uL (4.8-10.8)
[2017-06-23 10:26] LABS: POTASSIUM 4.1 mmol/L (3.5-5.1)
== END | disposition home or self-care (01) ==
LOC: C.CPL 09:09
PROVIDERS: ATTEND Orthopaedic Surgery Sports Medicine
DX: Z01.810 Encounter for preprocedural cardiovascular examination (principal); Z01.812 Encounter for preprocedural laboratory examination

== ENCOUNTER → 2017-07-05 | Day surgery (SDC) | payer OTHER ==
[2017-06-26 14:17] VITALS: Ht 177.8 cm; Wt 102.3 kg
[~2017-07-05] VITALS: Ht 177.8 cm; Wt 102.3 kg
[~2017-07-05] MED LIST changes: +ACET-749 PO; +ACETAMINOPHEN/CODEINE 300/30MG TAB PO PRN; +ATROPINE SULFATE 0.1 MG/ML 5ML SYR IV PRN; +BUPIVACAINE/EPINEPHRINE 0.5% MPF 1:200,000 30 ML VIAL ONE; +CEFAZOLIN 2000MG IV PUSH 10 ML IV SCH; +CEFAZOLIN SOD 1 GM VIAL ONE; +CEFAZOLIN SOD 1000MG/5 ML IV PUSH IV ONE; +CEFAZOLIN SOD 2000MG/10 ML IV PUSH IV ONE; +DEXAMETHASONE SOD INJ 4 MG/ML VIAL ONE; +EpHEDrine SULFATE INJ 50 MG/ML AMP IV PRN; +FENTANYL CITRATE INJ 50 MCG/1 ML 2 ML VIAL ONE; +FLUMAZENIL 0.1 MG/1 ML 10 ML VIAL IV PRN; -HYDR-5688 PO; +KETO10TA PO; +KETOROLAC TROMETHAMINE 30 MG/ML VIAL ONE; +LABETALOL HCL IV 5 MG/ML 20ML IV PRN; +LACTATED RINGER'S 1000ML 1,000 ML IV SCH; +LIDOCAINE HCL 2% 2 ML VIAL (20MG/ML) ONE; +MIDAZOLAM HCL 1 MG/ML 2ML VIAL ONE; +NALOXONE HCL 0.4 MG/1 ML VIAL/CARP IV PRN; +ONDANSETRON INJ 2 MG/ML 2 ML VIAL IV PRN; +ONDANSETRON INJ 2 MG/ML 2 ML VIAL ONE; +PROMETHAZINE HCL INJ 12.5 MG in SODIUM CHLORIDE 0.9% 50ML 50 ML IV PRN; +PROPOFOL IV EMULSION 10 MG/ML 20 ML VIAL IV ONE; -SIMV20TA2 PO; +SODIUM CHLORIDE 0.9% 1000ML 1,000 ML IV SCH
--- NOTE | 2017-07-05 09:01 | History & Physical Bridge - SC ---
H&P Re-Evaluation Bridge Note: I have examined the patient, reviewed the History & Physical and in the interval since the performance of the History & Physical I have noted the following changes of clinical significance: No changes noted
--- NOTE | 2017-07-05 10:32 | [facility] Post Operative Brief Note ---
Immediate Operative Summary Operative Date Jul 05, 2017. Pre-Operative Diagnosis Right cubital tunnel syndrome Post-Operative Diagnosis Same as preop Procedure(s) Performed Right Subcutaneous Ulnar Nerve Tranposition Surgeon Dr. Stewart Cpr Instructor Surgeon(s) Justo Garcia PA-C Estimated Blood Loss 20 mL Findings Right Cubital Tunnel Syndrome Specimens None Anesthesia General Complication(s) None Disposition Recovery Room / PACU
--- NOTE | 2017-07-05 10:38 | Discharge Instructions-SurgCtr ---
Discharge Instructions Date of Service Jul 05, 2017. Visit Reason for Visit: Right Cubital Tunnel Syndrome Discharge Discharge Diagnosis / Problem: right cubital tunnel syndrome Discharge Goals Goal(s): Decrease discomfort, Therapeutic intervention Medications Stopped Medications Name(s): Metformin, last dose 07/03/17 Restart Stopped Medication(s): may begin metformin again Activity Recommendations Activity Limitations: per Instructions/Follow-up section Anesthesia . Post Anesthesia Instructions: If you have had General Anesthesia or IV Sedation: * Do not drive today. * Resume driving when surgeon permits. * Do not make important decisions or sign legal documents today. * Call surgeon for: 1. Temperature elevations greater than 101 degrees F. 2. Uncontrollable pain. 3. Excessive bleeding. 4. Persistent nausea and vomiting. 5. Medication intolerance (nausea, vomiting or rash). * For nausea and vomiting use only clear liquids such as: tea, soda, bouillon until nausea subsides, then gradually increase diet as tolerated. * If you have any concerns or questions, call your surgeon's office. If physician is unavailable and it is an emergency, call 911 or go to the nearest emergency room. . Instructions / Follow-Up Instructions / Follow-Up MEDICATIONS: * Resume previous medications unless instructed otherwise by your surgeon. * Always take pain medication on a full stomach or with food to avoid upset stomach. * Do not drink alcohol or drive while taking narcotics. * Ibuprofen or Tylenol may be taken if narcotic not needed. No ibuprofen while taking toradol SPECIAL CARE INSTRUCTIONS: __ None _x_ Keep extremity elevated and iced x 48 hours; apply ice 20-30 minutes 8-10 times/day. May remove at night. _x_ Sling __24 hrs/day __ Remove at night __ Shoulder Immobilizer __ 24 hrs/day __ Remove at night _x_ Dressing _x_ Maintain until seen in office, may shower with plastic over site __ Remove dressings in 24-48 hours and then may shower __ Cover incisions with band-aids after showering __ Do not remove steri-strips Call physician if chills or temperature rises above 102 degrees or pain unrelieved by prescribed pain medications at . . follow up in 2 weeks Diet Recommendations Home Diet: resume previous diet Procedures Procedures Performed: Right Subcutaneous Ulnar Nerve Tranposition Pending Studies Studies pending at discharge: no Medical Emergencies . Who to Call and When: Medical Emergencies: If at any time you feel your situation is an emergency, please call 911 immediately. . Non-Emergent Contact Non-Emergency issues call your: Surgeon . . "Provider Documentation" section prepared by Jerald Garcia. .
[2017-07-05] MEDS: FENTANYL CITRATE INJ 50 MCG/1 ML 2 ML VIAL IV PRN ×4 (10:45→11:04)
[2017-07-05 11:23] VITALS: TEMP 36.6
--- NOTE | 2017-07-05 11:40 | Anesthesia Progress Nt - [facility] ---
Anesthesia Post Op Note Date & Time Jul 05, 2017 at 11:39 Vital Signs Pain Intensity: 3 Vital Signs Past 12 Hours Date Time Temp Pulse Resp B/P (MAP) Pulse Ox O2 Delivery O2 Flow Rate FiO2 07/05/17 11:23 36.6 78 20 131/89 (103) 96 Room Air 07/05/17 11:21 118/79 07/05/17 11:18 36.4 88 20 122/82 98 Room Air 07/05/17 11:17 87 13 98 07/05/17 11:17 87 13 07/05/17 11:16 122/82 07/05/17 11:12 84 18 97 07/05/17 11:12 86 18 07/05/17 11:11 120/72 07/05/17 11:07 87 14 07/05/17 11:07 87 14 97 07/05/17 11:06 117/74 07/05/17 11:04 89 20 99 07/05/17 11:04 88 20 07/05/17 11:01 124/73 07/05/17 10:59 86 15 07/05/17 10:59 86 15 100 07/05/17 10:56 112/77 07/05/17 10:54 87 14 07/05/17 10:54 87 14 99 07/05/17 10:51 110/74 07/05/17 10:49 82 10 100 07/05/17 10:49 82 10 07/05/17 10:48 84 14 07/05/17 10:48 85 14 100 07/05/17 10:46 110/77 07/05/17 10:43 89 11 07/05/17 10:43 90 11 100 07/05/17 10:41 117/78 07/05/17 10:38 95 13 100 07/05/17 10:38 95 13 07/05/17 10:36 103/71 07/05/17 10:34 102/75 07/05/17 10:33 100 17 07/05/17 10:33 36.5 99 16 102/75 97 Diffusion Mask 6 07/05/17 10:33 17 07/05/17 08:20 36.6 69 18 120/85 (97) 99 Room Air Notes Mental Status: alert / awake / arousable, participated in evaluation Pt Amnestic to Procedure: Yes Nausea / Vomiting: adequately controlled Pain: adequately controlled Airway Patency, RR, SpO2: stable & adequate BP & HR: stable & adequate Hydration State: stable & adequate Anesthetic Complications: no major complications apparent
[2017-07-05 11:58] VITALS: BP 125/86; PULSE 76; O2SAT 97
--- NOTE | 2017-07-06 07:11 | OPERATIVE REPORT ---
DATE OF OPERATION: 07/05/2017 SURGEON: Oskar Stewart MD. CIVIL CAD TECH: LOLLY Little. PREOPERATIVE DIAGNOSIS: Right cubital tunnel syndrome. POSTOPERATIVE DIAGNOSIS: Same. PROCEDURE PERFORMED: Right subcutaneous ulnar nerve transposition. COMPLICATION: None. ESTIMATED BLOOD LOSS: 20 mL TOURNIQUET TIME: 25 minutes at 250 mmHg. ANESTHESIA: General. SPECIMENS: None. 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 It has gotten worse over the past 6 months. He had nerve studies that revealed moderate cubital tunnel syndrome. He did have some stiffness and limited motion but minimal arthritic findings on x-ray. The patient elected to proceed with surgical treatment. OPERATIVE PROCEDURE: The patient was taken to the operating room, identified and placed on the operating room table in supine position. All contact areas were appropriately padded. IV antibiotics were provided by the anesthesia team. A general anesthetic was implemented by anesthesia team. Right upper extremity tourniquet was then placed and the right arm was then prepped and draped in usual sterile fashion. The right arm was elevated and exsanguinated with Esmarch and tourniquet was placed at 250 mmHg. A medial approach to the elbow was then performed through a curvilinear incision centered over the cubital tunnel. Sharp dissection was carried out through the subcutaneous tissue down to the level of the fascia. A full-thickness flap was elevated over the flexor pronator mass. The ulnar nerve was identified proximal to the cubital tunnel. It was dissected out distally for a minimum distance of 5 cm distal to the medial epicondyle and 10 cm proximal. The intermuscular septum was excised. The nerve was transposed anteriorly. A fascial flap gelled with dorsal flexor pronator mass was then elevated. The nerve was transposed anteriorly and this flap was sewed to subcutaneous tissues to keep the nerve anterior. I then repaired the cubital tunnel with 2-0 Vicryl suture in a [id number] fashion. I then injected locally with 30 mL of 0.5% Marcaine with epinephrine. The wound was once again irrigated. The tourniquet was then let down for a tourniquet time of 25 minutes. Subcutaneous tissues were then repaired with a combination of 2-0 and 3-0 Vicryl suture in a buried interrupted fashion. A combination of 3-0 and 4-0 Prolene suture was then used to repair the skin in a horizontal mattress fashion as I could not provide with a high quality subcuticular stitch due to his soft tissue envelope and subcutaneous fat. The arm was then cleaned and dried, and a sterile dressing of Xeroform, 4 x 4's, sterile cast padding and a well-padded posterior splint with the arm in 90 degrees of flexion was applied, followed by a sling. The patient was then brought out of general anesthesia and transferred to the recovery room in stable condition. The patient tolerated the procedure well with no complication. All needle and sponge counts were correct at the end of the operation. I attest to the content of the Intraoperative Record and any orders documented therein. Any exception s are noted below.
== END | disposition home or self-care (01) ==
LOC: X.SURG 07:45
PROVIDERS: ATTEND Orthopaedic Surgery Sports Medicine
DX: G56.21 Lesion of ulnar nerve, right upper limb (principal); I10 Essential (primary) hypertension; E11.9 Type 2 diabetes mellitus without complications; Z79.84 Long term (current) use of oral hypoglycemic drugs; F41.9 Anxiety disorder, unspecified; M06.9 Rheumatoid arthritis, unspecified; Z79.82 Long term (current) use of aspirin

== ENCOUNTER → 2017-07-13 | Outpatient (CLI) | payer OTHER ==
[~2017-07-13] VITALS: Ht 177.8 cm; Wt 106.8 kg
[~2017-07-13] MED LIST changes: -ACETAMINOPHEN/CODEINE 300/30MG TAB PO PRN; -ATROPINE SULFATE 0.1 MG/ML 5ML SYR IV PRN; -BUPIVACAINE/EPINEPHRINE 0.5% MPF 1:200,000 30 ML VIAL ONE; -CEFAZOLIN 2000MG IV PUSH 10 ML IV SCH; -CEFAZOLIN SOD 1 GM VIAL ONE; -CEFAZOLIN SOD 1000MG/5 ML IV PUSH IV ONE; -CEFAZOLIN SOD 2000MG/10 ML IV PUSH IV ONE; -DEXAMETHASONE SOD INJ 4 MG/ML VIAL ONE; -EpHEDrine SULFATE INJ 50 MG/ML AMP IV PRN; -FENTANYL CITRATE INJ 50 MCG/1 ML 2 ML VIAL ONE; -FLUMAZENIL 0.1 MG/1 ML 10 ML VIAL IV PRN; -KETOROLAC TROMETHAMINE 30 MG/ML VIAL ONE; -LABETALOL HCL IV 5 MG/ML 20ML IV PRN; -LACTATED RINGER'S 1000ML 1,000 ML IV SCH; -LIDOCAINE HCL 2% 2 ML VIAL (20MG/ML) ONE; +LISI40TA PO; -MIDAZOLAM HCL 1 MG/ML 2ML VIAL ONE; -NALOXONE HCL 0.4 MG/1 ML VIAL/CARP IV PRN; -ONDANSETRON INJ 2 MG/ML 2 ML VIAL IV PRN; -ONDANSETRON INJ 2 MG/ML 2 ML VIAL ONE; -PROMETHAZINE HCL INJ 12.5 MG in SODIUM CHLORIDE 0.9% 50ML 50 ML IV PRN; -PROPOFOL IV EMULSION 10 MG/ML 20 ML VIAL IV ONE; -SODIUM CHLORIDE 0.9% 1000ML 1,000 ML IV SCH
[2017-07-13 13:19] VITALS: Ht 177.8 cm; Wt 106.8 kg
--- NOTE | 2017-07-13 14:11 | PAT Medication Instructions ---
Service Date Jul 13, 2017. Current Home Medication List Acetaminophen/Codeine (Tylenol W/Codeine #3), 1 TAB PO Q6H PRN for N Aspirin (Aspirin Ec), 81 MG PO QAM Epinephrine (Epipen 2-Francisco), for ALLERGIC REACTION Gabapentin (Neurontin), 300 MG PO BID Lisinopril/Hctz (Zestoretic 20MG/12.5MG), 1 TAB PO BID Metformin Hcl (Glucophage), 1,000 MG PO BID Venlafaxine Hcl (Venlafaxine Hcl Er), 150 MG PO QAM Medication Instructions For Your Scheduled Surgery -Continue as directed: Epinephrine (Epipen 2-Francisco), for ALLERGIC REACTION - Hold the following medications 48 hours prior to surgery: Metformin Hcl (Glucophage), 1,000 MG PO BID - Hold the following medications the morning of surgery: Lisinopril/Hctz (Zestoretic 20MG/12.5MG), 1 TAB PO BID (and do not take the night before surgery) - Take the following medications the morning of surgery with a sip of water: Venlafaxine Hcl (Venlafaxine Hcl Er), 150 MG PO QAM Gabapentin (Neurontin), 300 MG PO BID Acetaminophen/Codeine (Tylenol W/Codeine #3), 1 TAB PO Q6H PRN (can be taken if needed up to four hours prior to surgery) Aspirin (Aspirin Ec), 81 MG PO QAM - Take the following medications as scheduled the night before surgery: Gabapentin (Neurontin), 300 MG PO BID Acetaminophen/Codeine (Tylenol W/Codeine #3), 1 TAB PO Q6H PRN (if needed) If you have any questions please call us at [phone] or [phone] or [phone]
--- NOTE | 2017-07-13 15:03 | DIAGNOSTIC IMAGING REPORT ---
CHEST 2 VIEWS ROUTINE HISTORY: 51 years-old Male PAT preoperative exam without acute chest complaints COMPARISON: Chest radiograph 10/31/2016 TECHNIQUE: PA and lateral views of the chest FINDINGS: Cardiomediastinal and hilar silhouettes are within normal limits. No pneumothorax or pleural effusion. Mild left hemidiaphragmatic elevation redemonstrated with linear subsegmental left basilar and lateral left midlung opacities which are also unchanged suggesting atelectasis or scarring. No overt pulmonary edema. Fusion hardware of the cervical spine. Remote appearing bilateral rib fractures. IMPRESSION: 1. No acute process. 2. Unchanged mild left hemidiaphragmatic elevation with subsegmental linear lateral left midlung and left basilar opacities suggesting atelectasis/scarring. The above report was generated using voice recognition software. It may contain grammatical, syntax or spelling errors. Electronically signed by: Andrew Ward M.D. 07/13/2017 3:01 PM Dictated Date/Time: 07/13/2017 3:00 PM
[2017-07-13 15:22] LABS: ALBUMIN 4.2 gm/dl (3.4-5.0); CALCIUM 9.1 mg/dl (8.5-10.1); CREATININE 1.13 mg/dl (0.60-1.40); POTASSIUM 4.2 mmol/L (3.5-5.1)
[2017-07-13 15:30] LABS: INR 0.9 (0.9-1.1); PTT PATIENT 24.7 SECONDS (21.0-31.0)
== END | disposition home or self-care (01) ==
LOC: C.LAB 08:00 → EDSTATUS 13:00
PROVIDERS: ATTEND Orthopaedic Surgery Sports Medicine
DX: Z01.818 Encounter for other preprocedural examination (principal); Z01.812 Encounter for preprocedural laboratory examination; Z01.810 Encounter for preprocedural cardiovascular examination

== ENCOUNTER → 2017-08-01 | Outpatient (CLI) | payer OTHER ==
[~2017-08-01] MED LIST changes: -KETO10TA PO; -LISI40TA PO
[2017-08-01 17:40] LABS: BLOOD UREA NITROGEN 14 mg/dl (7-18); CALCIUM 9.2 mg/dl (8.5-10.1); CARBON DIOXIDE 27 mmol/L (21-32); CREATININE 1.14 mg/dl (0.60-1.40); GLUCOSE 85 mg/dl (70-99); POTASSIUM 4.3 mmol/L (3.5-5.1); SODIUM 134 mmol/L (136-145)
== END | disposition home or self-care (01) ==
LOC: C.LABBFT 11:55
PROVIDERS: ATTEND Physician Assistant Medical
DX: E87.1 Hypo-osmolality and hyponatremia (principal)

== ENCOUNTER → 2017-08-07 | Outpatient (CLI) | payer OTHER ==
[2017-08-07 13:06] LABS: BLOOD UREA NITROGEN 19 mg/dl (7-18); CARBON DIOXIDE 25 mmol/L (21-32); GLUCOSE 97 mg/dl (70-99); POTASSIUM 4.7 mmol/L (3.5-5.1); SODIUM 132 mmol/L (136-145)
== END | disposition home or self-care (01) ==
LOC: C.LABBFT 08:43
PROVIDERS: ATTEND Physician Assistant Medical
DX: E87.1 Hypo-osmolality and hyponatremia (principal)

== ENCOUNTER → 2017-08-14 | Outpatient (CLI) | payer OTHER ==
[2017-08-14 17:59] LABS: BLOOD UREA NITROGEN 15 mg/dl (7-18); CARBON DIOXIDE 29 mmol/L (21-32); CREATININE 1.07 mg/dl (0.60-1.40); GLUCOSE 93 mg/dl (70-99); POTASSIUM 4.3 mmol/L (3.5-5.1); SODIUM 138 mmol/L (136-145)
== END | disposition home or self-care (01) ==
LOC: C.LABBFT 11:23
PROVIDERS: ATTEND Physician Assistant Medical
DX: E87.1 Hypo-osmolality and hyponatremia (principal)

== ENCOUNTER → 2017-08-24 | Outpatient (CLI) | payer OTHER ==
[~2017-08-24] MED LIST changes: +LISI40TA PO
[2017-08-24 13:41] LABS: BASO % 1.1 %; BASO ABS # 0.05 K/uL (0-0.2); EOS % 3.7 %; EOS ABS # 0.17 K/uL (0-0.5); HEMATOCRIT 39.6 % (42-52); HEMOGLOBIN 13.6 g/dL (14.0-18.0); LYMPH % 32.1 %; LYMPH ABS # 1.49 K/uL (1.2-3.4); MEAN CELL VOLUME 93.2 fL (80-100); MEAN CORPUSCULAR HGB CONC 34.3 g/dl (32-36); MONO % 6.9 %; MONO ABS # 0.32 K/uL (0.11-0.59); NEUT % 56.2 %; NEUT ABS # 2.61 K/uL (1.4-6.5); PLATELET COUNT 229 K/uL (130-400); RED CELL DISTRIBUTION WIDTH CV 15.2 % (11.5-14.5); RED CELL DISTRIBUTION WIDTH SD 49.8 fL (36.4-46.3); WHITE BLOOD COUNT 4.64 K/uL (4.8-10.8)
[2017-08-24 13:59] LABS: POTASSIUM 4.6 mmol/L (3.5-5.1)
== END | disposition home or self-care (01) ==
LOC: C.LABBC 09:43
PROVIDERS: ATTEND Orthopaedic Surgery Sports Medicine
DX: Z01.812 Encounter for preprocedural laboratory examination (principal)

== ENCOUNTER → 2017-09-01 | Outpatient (CLI) | payer OTHER ==
[~2017-09-01] MED LIST changes: +KETO10TA PO; -LISI-787 PO
--- NOTE | 2017-09-01 10:24 | DIAGNOSTIC IMAGING REPORT ---
(CHEST) THORAX WITHOUT CLINICAL HISTORY: PULMONARY NODULE FOLLOW-UP EXAMINATION COMPARISON STUDY: August 31, 2016 , August 2015 CT DOSE: 687.66 mGy.cm TECHNIQUE: CT of the thorax was performed from the thoracic inlet to the lung bases. Images are reviewed in the axial, sagittal, and coronal planes. IV contrast was not administered for this examination. A dose lowering technique was utilized adhering to the principles of ALARA. FINDINGS: Thyroid: Imaged portions of the thyroid gland are normal in appearance. Thoracic aorta: There is dilatation of the ascending thoracic aorta which measures 4 cm. Heart: The heart is normal in size and configuration, without pericardial effusion. Lungs and pleural spaces: No pleural effusions are visualized. There is a stable 4 mm right middle lobe pulmonary nodule as visualized in image #149/[id number]. There is a stable 2 mm left lower lobe pulmonary nodule as visualized in image #237/346. There is a stable 4.5 mm right middle lobe pulmonary nodule as visualized in image 2. 11/346. There is a stable 4 mm right middle lobe pulmonary nodule as visualized in image #201/346. There is a stable 3 mm perifissural right upper lobe pulmonary nodule as visualized in image #155/346. There are stable left lower lobe opacities, hepatic a configuration most consistent with atelectasis Mediastinum: There is no mediastinal lymphadenopathy. Deb: There is no evidence of pathologic hilar adenopathy given the limitations of a noncontrast study Axilla: Clear. Upper abdomen: There is a stable 12 mm hypodensity within the right hepatic lobe Skeletal structures: There are no lytic or blastic osseous lesions. IMPRESSION: 1. Multiple bilateral subcentimeter solid pulmonary nodules, the largest of which measures 4.5 mm. The nodules remain essentially stable from the prior 2016 and 2015 studies. These nodules are highly likely benign. 2. Stable lingular and left lower lobe opacities, most consistent with scar/atelectasis Electronically signed by: Jerel Lopez M.D. 09/01/2017 10:23 AM Dictated Date/Time: 09/01/2017 10:10 AM
== END | disposition home or self-care (01) ==
LOC: C.CTS 10:00
PROVIDERS: ATTEND Internal Medicine Pulmonary Disease
DX: R07.9 Chest pain, unspecified (principal); J94.9 Pleural condition, unspecified

== ENCOUNTER → 2017-09-06 | Day surgery (SDC) | payer OTHER ==
[2017-08-28 07:34] VITALS: BMI 32.0
[2017-08-31 13:52] VITALS: Ht 177.8 cm; Wt 102.3 kg
[~2017-09-06] VITALS: Ht 177.8 cm; Wt 102.3 kg
[~2017-09-06] MED LIST changes: +ACETAMINOPHEN/CODEINE 300/30MG TAB PO PRN; +ATROPINE SULFATE 0.1 MG/ML 5ML SYR IV PRN; +BUPIVACAINE/EPINEPHRINE 0.5% MPF 1:200,000 30 ML VIAL ONE; +CEFAZOLIN 2000MG IV PUSH 15 ML IV SCH; +CEFAZOLIN SOD 1 GM VIAL ONE; +CEFAZOLIN SOD 1000MG/7.5 ML IV PUSH IV ONE; +DEXAMETHASONE SOD INJ 4 MG/ML VIAL IV PRN; +DEXAMETHASONE SOD INJ 4 MG/ML VIAL ONE; +EpHEDrine SULFATE INJ 50 MG/ML AMP IV PRN; +FENTANYL CITRATE INJ 50 MCG/1 ML 2 ML VIAL ONE; +KETOROLAC TROMETHAMINE 30 MG/ML VIAL IV. PRN; +LACTATED RINGER'S 1000ML 1,000 ML IV SCH; +LIDOCAINE HCL 2% 2 ML VIAL (20MG/ML) ONE; +LISI-787 PO; +METOCLOPRAMIDE HCL INJ 5 MG/ML 2 ML VIAL IV PRN; +MIDAZOLAM HCL 1 MG/ML 2ML VIAL ONE; +MoRPHine SULFATE 10 MG/ML CARP/VIAL IV PRN; +ONDANSETRON INJ 2 MG/ML 2 ML VIAL IV PRN; +ONDANSETRON INJ 2 MG/ML 2 ML VIAL ONE; +PHENYLEPHRINE 100MCG/ML 5ML SYR IV PRN; +PROPOFOL IV EMULSION 10 MG/ML 20 ML VIAL IV ONE; +SODIUM CHLORIDE 0.9% 1000ML 1,000 ML IV SCH
--- NOTE | 2017-09-06 09:23 | [facility] Post Operative Brief Note ---
Immediate Operative Summary Operative Date Sep 06, 2017. Pre-Operative Diagnosis Left Cubital Tunnel Syndrome Post-Operative Diagnosis Same Procedure(s) Performed Left Ulnar Nerve Subcutaneous Transposition Surgeon Dr. Stewart Gluing Machine Offbearer Surgeon(s) Rea Garcia PA-C Estimated Blood Loss 20 ML Findings Consistent with Post-Op Diagnosis Specimens None Drains None Anesthesia Type General Complication(s) none Disposition Accompanied Pt To Recovery: no Disposition: Recovery Room / PACU
--- NOTE | 2017-09-06 09:29 | Discharge Instructions-SurgCtr ---
Discharge Instructions Date of Service Sep 06, 2017. Visit Reason for Visit: Left Cubital Tunnel Syndrome Discharge Discharge Diagnosis / Problem: left cubital tunnel syndrome Discharge Goals Goal(s): Decrease discomfort, Therapeutic intervention Medications Stopped Medications Name(s): metformin aspirin Restart Stopped Medication(s): may restart metformin and aspirin Activity Recommendations Activity Limitations: per Instructions/Follow-up section limited use of left arm Anesthesia . Post Anesthesia Instructions: If you have had General Anesthesia or IV Sedation: * Do not drive today. * Resume driving when surgeon permits. * Do not make important decisions or sign legal documents today. * Call surgeon for: 1. Temperature elevations greater than 101 degrees F. 2. Uncontrollable pain. 3. Excessive bleeding. 4. Persistent nausea and vomiting. 5. Medication intolerance (nausea, vomiting or rash). * For nausea and vomiting use only clear liquids such as: tea, soda, bouillon until nausea subsides, then gradually increase diet as tolerated. * If you have any concerns or questions, call your surgeon's office. If physician is unavailable and it is an emergency, call 911 or go to the nearest emergency room. . Instructions / Follow-Up Instructions / Follow-Up MEDICATIONS: * Resume previous medications unless instructed otherwise by your surgeon. * Always take pain medication on a full stomach or with food to avoid upset stomach. * Do not drink alcohol or drive while taking narcotics. * Ibuprofen or Tylenol may be taken if narcotic not needed. No ibuprofen while taking toradol SPECIAL CARE INSTRUCTIONS: __ None __ Keep extremity elevated and iced x 48 hours; apply ice 20-30 minutes 8-10 times/day. May remove at night. _x_ Sling __24 hrs/day __ Remove at night __ Shoulder Immobilizer __ 24 hrs/day __ Remove at night _x_ Dressing _x_ Maintain until seen in office, may shower with plastic over site __ Remove dressings in 24-48 hours and then may shower __ Cover incisions with band-aids after showering __ Do not remove steri-strips Call physician if chills or temperature rises above 102 degrees or pain unrelieved by prescribed pain medications at . . follow up in 2 weeks Diet Recommendations Home Diet: resume previous diet Procedures Procedures Performed: Left Ulnar Nerve Subcutaneous Transposition Pending Studies Studies pending at discharge: no Medical Emergencies . Who to Call and When: Medical Emergencies: If at any time you feel your situation is an emergency, please call 911 immediately. . Non-Emergent Contact Non-Emergency issues call your: Surgeon . . "Provider Documentation" section prepared by Jerald Garcia. .
[2017-09-06] MEDS: FENTANYL CITRATE INJ 50 MCG/1 ML 2 ML VIAL IV PRN ×2 (09:44→09:52)
--- NOTE | 2017-09-06 09:47 | OPERATIVE REPORT ---
DATE OF OPERATION: 09/06/2017 SURGEON: Oskar Stewart MD. WOOD CLUB NECK WHIPPER: LOLLY Nunez. PREOPERATIVE DIAGNOSIS: Left cubital tunnel syndrome. POSTOPERATIVE DIAGNOSIS: Same. PROCEDURE PERFORMED: Left subcutaneous ulnar transposition. COMPLICATION: None. ESTIMATED BLOOD LOSS: 20 mL TOURNIQUET TIME: 21 minutes at 250 mmHg. ANESTHESIA: General. SPECIMENS: None. OPERATIVE INDICATIONS: The patient is a 51-year-old male who has had a fairly long history of intermittent on and off and progressive ulnar nerve symptoms. He had nerve studies that revealed bilateral cubital tunnel syndrome. He underwent right ulnar nerve transposition 2 months ago and has done well from this. He elected to proceed with ulnar nerve transposition on his left elbow. OPERATIVE PROCEDURE: The patient taken to the operating room, identified and placed on the operating table in supine position. All contact areas were appropriately padded. IV antibiotics were provided by anesthesia team. General anesthetic was implemented by anesthesia team. A left upper extremity tourniquet was placed. The left arm was then prepped and draped in usual sterile fashion. Left arm was elevated and exsanguinated with Esmarch and tourniquet was placed at 250 mmHg. A medial approach to the elbow was then performed through a curvilinear incision centered over the cubital tunnel. Sharp dissection was carried out through the subcutaneous tissues down to the level of the fascia. Full-thickness fascial flap was elevated over the flexor pronator mass. The ulnar nerve was identified proximal to the cubital tunnel. It was dissected out distally, a minimum distance of 5 cm distal and 10 cm proximal to the medial epicondyle. The intermuscular septum was resected. A fascial flap was then elevated from the flexor pronator mass and hinged on the medial epicondyle. The nerve was transposed anteriorly. This fascial flap was sewn to the subcutaneous tissues about 2 cm anterior to the medial epicondyle. Of note, there were several motor branches to the FCU muscle bellies which I dissected out and left intact. The cubital tunnel fascia was then repaired with 2-0 Vicryl suture. I injected locally with 30 mL of 0.5% Marcaine with epinephrine. I irrigated the wound extensively. The tourniquet was then let down for a tourniquet time of 21 minutes. Hemostasis was assured with use of electrocautery. The subcutaneous tissues were repaired with 2-0 Dexon suture in a buried interrupted fashion. The skin was then closed with a combination of 3-0 nylon and 3-0 Prolene suture in a horizontal mattress fashion. The arm was then cleaned and dried, and a sterile dressing of Xeroform, 4 x 4's, sterile cast padding and Duane bandage, followed by well-padded posterior splint in 90-degree flexion and a sling were applied. The patient then brought out of general anesthesia and transferred to the recovery room in stable condition. The patient tolerated the procedure well with no complications. All needle and sponge counts were correct at the end of the operation. I attest to the content of the Intraoperative Record and any orders documented therein. Any exception s are noted below.
[2017-09-06] MEDS: LABETALOL HCL IV 5 MG/ML 20ML IV PRN ×2 (10:02→10:12)
[2017-09-06 10:49] VITALS: TEMP 36.5
--- NOTE | 2017-09-06 10:49 | Anesthesia Progress Nt - [facility] ---
Anesthesia Post Op Note Date & Time Sep 06, 2017 at 10:49 Vital Signs Pain Intensity: 3 Vital Signs Past 12 Hours Date Time Temp Pulse Resp B/P (MAP) Pulse Ox O2 Delivery O2 Flow Rate FiO2 09/06/17 10:39 80 13 95 09/06/17 10:39 79 13 09/06/17 10:36 173/86 09/06/17 10:35 36.5 71 12 173/86 95 Room Air 09/06/17 10:34 70 3 09/06/17 10:34 71 3 94 09/06/17 10:31 175/92 09/06/17 10:29 75 3 09/06/17 10:29 74 3 93 09/06/17 10:26 178/87 09/06/17 10:24 73 13 09/06/17 10:24 73 13 94 09/06/17 10:21 165/90 09/06/17 10:19 81 15 93 09/06/17 10:19 82 15 09/06/17 10:16 173/87 09/06/17 10:14 79 4 09/06/17 10:14 79 4 180/82 96 09/06/17 10:11 200/94 09/06/17 10:09 81 13 09/06/17 10:09 80 13 97 09/06/17 10:07 205/95 09/06/17 10:06 213/95 09/06/17 10:04 91 13 98 09/06/17 10:04 92 13 09/06/17 10:01 185/88 09/06/17 09:59 86 13 09/06/17 09:59 86 13 181/89 98 09/06/17 09:56 188/88 09/06/17 09:54 81 18 09/06/17 09:54 80 18 98 09/06/17 09:51 190/89 09/06/17 09:49 81 15 09/06/17 09:49 80 15 99 09/06/17 09:46 173/87 09/06/17 09:44 81 14 18 09:44 82 14 99 09/06/17 09:41 174/86 09/06/17 09:39 85 23 09/06/17 09:39 85 23 99 09/06/17 09:36 163/79 09/06/17 09:34 86 19 2/14/18 09:34 86 19 98 09/06/17 09:31 147/76 09/06/17 09:29 87 24 09/06/17 09:29 91 24 09/06/17 09:26 152/80 09/06/17 09:25 153/77 09/06/17 09:24 36.5 97 20 153/77 96 Mask 6 09/06/17 07:09 36.6 74 16 131/85 (100) 96 Room Air Notes Mental Status: alert / awake / arousable, participated in evaluation Pt Amnestic to Procedure: Yes Nausea / Vomiting: adequately controlled Pain: adequately controlled Airway Patency, RR, SpO2: stable & adequate BP & HR: stable & adequate Hydration State: stable & adequate Anesthetic Complications: no major complications apparent
[2017-09-06 11:12] VITALS: BP 129/82; PULSE 69; O2SAT 95
== END | disposition home or self-care (01) ==
LOC: X.SURG 07:01
PROVIDERS: ATTEND Orthopaedic Surgery Sports Medicine
DX: G56.22 Lesion of ulnar nerve, left upper limb (principal); R73.03 Prediabetes; I10 Essential (primary) hypertension; Z88.5 Allergy status to narcotic agent; F41.9 Anxiety disorder, unspecified; Z79.84 Long term (current) use of oral hypoglycemic drugs; Z79.82 Long term (current) use of aspirin; M19.90 Unspecified osteoarthritis, unspecified site

== ENCOUNTER → 2017-10-12 | Outpatient (CLI) | payer OTHER ==
[~2017-10-12] MED LIST changes: -ACETAMINOPHEN/CODEINE 300/30MG TAB PO PRN; -ATROPINE SULFATE 0.1 MG/ML 5ML SYR IV PRN; -BUPIVACAINE/EPINEPHRINE 0.5% MPF 1:200,000 30 ML VIAL ONE; -CEFAZOLIN 2000MG IV PUSH 15 ML IV SCH; -CEFAZOLIN SOD 1 GM VIAL ONE; -CEFAZOLIN SOD 1000MG/7.5 ML IV PUSH IV ONE; -DEXAMETHASONE SOD INJ 4 MG/ML VIAL IV PRN; -DEXAMETHASONE SOD INJ 4 MG/ML VIAL ONE; -EpHEDrine SULFATE INJ 50 MG/ML AMP IV PRN; -FENTANYL CITRATE INJ 50 MCG/1 ML 2 ML VIAL ONE; -KETO10TA PO; -KETOROLAC TROMETHAMINE 30 MG/ML VIAL IV. PRN; -LACTATED RINGER'S 1000ML 1,000 ML IV SCH; -LIDOCAINE HCL 2% 2 ML VIAL (20MG/ML) ONE; -LISI-787 PO; -METOCLOPRAMIDE HCL INJ 5 MG/ML 2 ML VIAL IV PRN; -MIDAZOLAM HCL 1 MG/ML 2ML VIAL ONE; -MoRPHine SULFATE 10 MG/ML CARP/VIAL IV PRN; -ONDANSETRON INJ 2 MG/ML 2 ML VIAL IV PRN; -ONDANSETRON INJ 2 MG/ML 2 ML VIAL ONE; -PHENYLEPHRINE 100MCG/ML 5ML SYR IV PRN; -PROPOFOL IV EMULSION 10 MG/ML 20 ML VIAL IV ONE; -SODIUM CHLORIDE 0.9% 1000ML 1,000 ML IV SCH
== END | disposition home or self-care (01) ==
LOC: C.LABBFT 09:08
PROVIDERS: ATTEND Physician Assistant Medical
DX: Z12.5 Encounter for screening for malignant neoplasm of prostate (principal)

== ENCOUNTER 2017-11-21 05:02 | Inpatient (IN) | payer OTHER ==
[2017-11-03 14:54] VITALS: BMI 32.0
--- NOTE | 2017-11-03 15:34 | PAT Medication Instructions ---
Service Date Nov 03, 2017. Current Home Medication List Aspirin (Aspirin Ec), 81 MG PO QAM Epinephrine (Epipen 2-Francisco), for ALLERGIC REACTION Gabapentin (Neurontin), 300 MG PO TID Lisinopril (Zestril), 40 MG PO QAM Metformin Hcl (Glucophage), 1,000 MG PO BID Venlafaxine Hcl (Effexor), 37.5 MG PO QPM Venlafaxine Hcl (Effexor Extended Rel), 150 MG PO QPM Medication Instructions For Your Scheduled Surgery -Continue as needed: Epinephrine (Epipen 2-Francisco), for ALLERGIC REACTION - Hold the following medications the morning of surgery: Lisinopril (Zestril), 40 MG PO QAM Metformin Hcl (Glucophage), 1,000 MG PO BID - Take the following medications the morning of surgery with a sip of water: Aspirin (Aspirin Ec), 81 MG PO QAM Gabapentin (Neurontin), 300 MG PO TID - Take the following medications as scheduled the night before surgery: Gabapentin (Neurontin), 300 MG PO TID Metformin Hcl (Glucophage), 1,000 MG PO BID Venlafaxine Hcl (Effexor), 37.5 MG PO QPM Venlafaxine Hcl (Effexor Extended Rel), 150 MG PO QPM If you have any questions please call us at [phone] or [phone] or [phone]
[2017-11-03 16:26] LABS: BASO ABS # 0.06 K/uL (0-0.2); EOS % 1.8 %; EOS ABS # 0.11 K/uL (0-0.5); HEMATOCRIT 41.2 % (42-52); HEMOGLOBIN 14.1 g/dL (14.0-18.0); LYMPH % 32.1 %; LYMPH ABS # 1.97 K/uL (1.2-3.4); MEAN CELL VOLUME 91.2 fL (80-100); MEAN CORPUSCULAR HEMOGLOBIN 31.2 pg (25-34); MEAN CORPUSCULAR HGB CONC 34.2 g/dl (32-36); MEAN PLATELET VOLUME 11.5 fL (7.4-10.4); MONO % 6.5 %; NEUT % 58.6 %; PLATELET COUNT 247 K/uL (130-400); RED CELL DISTRIBUTION WIDTH CV 14.1 % (11.5-14.5); RED CELL DISTRIBUTION WIDTH SD 46.2 fL (36.4-46.3); WHITE BLOOD COUNT 6.14 K/uL (4.8-10.8)
[2017-11-03 16:35] LABS: INR 0.9 (0.9-1.1); PTT PATIENT 24.1 SECONDS (21.0-31.0)
[2017-11-03 16:41] LABS: BLOOD UREA NITROGEN 13 mg/dl (7-18); CALCIUM 9.5 mg/dl (8.5-10.1); CARBON DIOXIDE 29 mmol/L (21-32); CREATININE 1.25 mg/dl (0.60-1.40); GLUCOSE 99 mg/dl (70-99); POTASSIUM 4.6 mmol/L (3.5-5.1); SODIUM 136 mmol/L (136-145)
--- NOTE | 2017-11-18 09:59 | HISTORY & PHYSICAL EXAMINATION ---
DATE OF ADMISSION: 11/21/2017 CHIEF COMPLAINT: Right knee pain. HISTORY OF PRESENT ILLNESS: The patient is a 52-year-old gentleman who is well known to me from a relatively recent ulnar nerve transpositions. He has had a long history of knee problems and had his left knee replaced by Dr. Mullins back in 05/2016. He has a long history of right knee problems as well. He had his right knee scoped about 6 years ago. It provided some temporary relief. He has continued to be bothered by more and more pain in his knee. He was actually scheduled to have his right knee replaced by Dr. Mullins; it was canceled for unclear reasons. He has got pain globally in his knee. The more he walks, the more it hurts. 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 It is a fairly global pain. He would like to have his right knee replaced. PAST MEDICAL HISTORY: 1. Hypertension. 2. History of seizure disorder in the past. 3. Neck and back pain. 4. Anxiety/depression: Diabetes with a hemoglobin A1c of 6.0. 5. Anemia. PREVIOUS SURGICAL HISTORY: Include: 1. Left knee scope x2. 2. Right knee scope 6 years ago. 3. Herniorrhaphy. 4. Left distal biceps repair. 5. Left knee replacement done on 05/27/2016. 6. Right ulnar nerve transposition. 7. Left ulnar nerve transposition. ALLERGIES: None. CURRENT MEDICATIONS: 1. Lisinopril. 2. Effexor. 3. Gabapentin. SOCIAL HISTORY: A 52-year-old male. 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 He is . FAMILY HISTORY: Significant for heart disease and diabetes. REVIEW OF SYSTEMS: Significant for diabetes, well controlled. No chest pain or shortness of breath. No history of DVT or PE. No known bleeding problems. PHYSICAL EXAMINATION: GENERAL: Reveals a healthy, pleasant middle-aged male who looks to be in pretty good health. HEENT: Benign. NECK: Supple, no lymphadenopathy. LUNGS: Clear to auscultation. HEART: Regular rate and rhythm. ABDOMEN: Soft, nontender, nondistended. EXTREMITIES: Grossly neurovascularly intact except as follows: Examination of right knee reveals the patient walks with just a slight bit of a limp. He has got varus alignment to his knee and just a little bit of a varus thrust with weightbearing. He has got bony hypertrophy medially. A moderate-sized knee effusion. Range of motion is 5-125. Examination of the left knee reveals well-healed incision. He does have a small to moderate size effusion. A little bit of varus valgus laxity. Range of motion 0-120. No pain with hip motion. X-RAYS: X-rays of the right knee revealed advanced right knee DJD. He has got complete loss of his medial joint space on the 40 degree flexion films. A little bit of tibial femoral subluxation. He has got osteophytes of the medial femoral condyle and medial tibial plateau. X-rays of the left knee reveal [employer] posterior stabilized knee arthroplasty. Components looked to be in good position. No signs of problems. The calcar is a little bit eccentric and oblique. LABORATORY DATA: Sed rate is normal at 6. C-reactive protein less than 0.29. ASSESSMENT: A 52-year-old male status post a left knee replacement a year and a half ago with right knee degenerative joint disease, history of knee arthroscopy in the past. He has failed conservative treatment and would like to have his right knee replaced. He is not perfectly happy with his left knee, it is likely related to some residual instability, but there are no signs of infection. PLAN: We will take him to the operating room and do a right total knee replacement. The risks and benefits of this procedure were explained to the patient including but not limited to DVT, PE, , infection, neurological injury, vascular injury, bleeding problem, pain on range of motion, stiffness, failure to symptoms, incomplete relief of symptoms, need for further surgery in the future, fracture, leg length inequality, nerve palsy, need for blood transfusion, etc. He knows at his young age, this might need to be redone in the future. We will have him hold his lisinopril the morning of surgery. He is diabetic. We will use insulin sliding scale coverage in the hospital.
[~2017-11-21] VITALS: Ht 177.8 cm; Wt 101.9 kg
[2017-11-21] VITALS (8 sets, daily range): BP systolic 121–133; BP diastolic 75–88; PULSE 65–87; TEMP 36.4–36.6; O2SAT 96–100; Ht 177.8 cm; Wt 101.9 kg
[~2017-11-21 05:02] MED LIST changes: -ACET-749 PO; +EFF/375 PO; +LACTATED RINGER'S 1000ML 1,000 ML IV SCH; +LACTATED RINGER'S 1000ML 500 ML IV SCH; +VENL150C56 PO; -VENL150T33 PO
[2017-11-21] MEDS ORDERED: LACTATED RINGER'S 1000ML IV SCH (06:00)
[2017-11-21] MEDS ORDERED: FAMOTIDINE 20 MG TAB PO SCH (06:00)
[2017-11-21] MEDS ORDERED: ACETAMINOPHEN 500 MG TAB PO SCH (06:00)
[2017-11-21] MEDS ORDERED: SCOPOLAMINE 1.5 MG TDSY TD SCH (06:00)
[2017-11-21] MEDS ORDERED: TRANEXAMIC ACID INJ 1,000 MG x 1 Bag Intra-Op IV SCH ×2 (06:00)
[2017-11-21] MEDS ORDERED: LACTATED RINGER'S 1000ML 1,000 ML IV SCH ×2 (06:00)
[2017-11-21] MEDS ORDERED: METOCLOPRAMIDE HCL 10 MG TAB PO SCH (06:00)
[2017-11-21] MEDS ORDERED: CEFAZOLIN 2000MG IV PUSH 15 ML IV SCH (06:00)
[2017-11-21] MEDS ORDERED: GABAPENTIN 900 MG PO SCH (06:00)
[2017-11-21] MEDS ORDERED: BUPIVACAINE LIPOSOME 266 MG, BUPIVACAINE/EPINEPHRINE INJ 50 ML, SODIUM CHLORIDE 0.9% PF... INFIL SCH ×3 (06:00)
[2017-11-21] MEDS ORDERED: LACTATED RINGER'S 500 ML IV SCH (06:00)
[2017-11-21] MEDS ORDERED: MIDAZOLAM HCL 1 MG/ML 2ML VIAL ONE (06:11)
[2017-11-21] MEDS ORDERED: FENTANYL CITRATE INJ 50 MCG/1 ML 2 ML VIAL ONE (06:11)
[2017-11-21] MEDS ORDERED: LIDOCAINE HCL 2% 2 ML VIAL (20MG/ML) ONE (06:25)
[2017-11-21] MEDS ORDERED: ONDANSETRON INJ 2 MG/ML 2 ML VIAL ONE (06:25)
[2017-11-21] MEDS ORDERED: PROPOFOL IV EMULSION 10 MG/ML 20 ML VIAL ONE ×2 (06:25→08:05)
[2017-11-21] MEDS ORDERED: BUPIVACAINE 0.5 % 5 MG/1 ML PF 10ML VIAL ONE (06:28)
[2017-11-21] MEDS ORDERED: ROPIVACAINE 0.5% 5 MG/ML 30 ML VIAL ONE (06:28)
[2017-11-21] MEDS ORDERED: BACITRACIN 50000 UNIT VIAL ONE (06:34)
[2017-11-21] MEDS ORDERED: BUPIVACAINE 0.25% 30 ML VIAL ONE (06:34)
[2017-11-21] MEDS ORDERED: BUPIVACAINE LIPOSOME 1/3% 266 MG/20 ML VIAL ONE (06:34)
[2017-11-21] MEDS ORDERED: SODIUM CHLORIDE 0.9% PF 50 ML VIAL ONE (06:34)
[2017-11-21] MEDS ORDERED: EpINEphrine INJ 1MG/ML AMP 1 MG/ML AMP ONE (06:35)
--- NOTE | 2017-11-21 08:39 | [facility] Post Operative Brief Note ---
Immediate Operative Summary Operative Date November 21, 2017. Pre-Operative Diagnosis Right Knee Advanced Degenerative Joint Disease Post-Operative Diagnosis Right Knee Advanced Degenerative Joint Disease Procedure(s) Performed Right Total Knee Arthroplasty Surgeon Dr. Stewart Sweater Operator Surgeon(s) LOLLY Nunez Estimated Blood Loss 50 ml Findings Consistent with Post-Op Diagnosis Fluids (cc crystalloids) 1000 cc Specimens A. Right Knee Bone and Tissue Drains None Anesthesia Type MAC Spinal Regional Complication(s) none Disposition Accompanied Pt To Recover: no Disposition: Recovery Room / PACU
[2017-11-21] MEDS ORDERED: CEFAZOLIN IV 2,000 MG in DEXTROSE 5% 50ML 50 ML IV SCH (08:45)
[2017-11-21] MEDS ORDERED: BISACODYL 10 MG SUPP PR PRN (08:45)
[2017-11-21] MEDS ORDERED: CARBOHYDRATES FOR HYPOGLYCEMIA PO PRN (08:45)
[2017-11-21] MEDS ORDERED: SILVER SULFADIAZINE 1% CR 50 GM JAR EXT PRN (08:45)
[2017-11-21] MEDS ORDERED: DEXTROSE 50% 50 ML SYR IV PRN (08:45)
[2017-11-21] MEDS ORDERED: METOCLOPRAMIDE HCL INJ 5 MG/ML 2 ML VIAL IV PRN (08:45)
[2017-11-21] MEDS ORDERED: ONDANSETRON INJ 2 MG/ML 2 ML VIAL IV PRN (08:45)
[2017-11-21] MEDS ORDERED: GLUCAGON FOR INJ 1 MG VIAL SQ PRN (08:45)
[2017-11-21] MEDS ORDERED: ZOLPIDEM TARTRATE 5 MG TAB PO PRN (08:45)
[2017-11-21] MEDS ORDERED: MAGNESIUM HYDROXIDE SUSP 30 ML UDC PO PRN (08:45)
[2017-11-21] MEDS ORDERED: TAMSULOSIN HCL 0.4 MG CAP PO PRN (08:45)
[2017-11-21] MEDS ORDERED: DiphenhydrAMINE HCL 50 MG/ML VIAL IV PRN (08:45)
[2017-11-21] MEDS ORDERED: GLUCOSE 10 TABS/TUBE PO PRN (08:45)
[2017-11-21] MEDS ORDERED: GLUCOSE 40% GEL 15 GM TUBE PO PRN (08:45)
[2017-11-21] MEDS ORDERED: ALUMINUM/MAGNESIUM/SIMETH (MAALOX MAX) 30 ML UDC PO PRN (08:45)
[2017-11-21] MEDS ORDERED: ATROPINE SULFATE 0.1 MG/ML 5ML SYR IV PRN (09:00)
[2017-11-21] MEDS ORDERED: EpHEDrine SULFATE INJ 50 MG/ML AMP IV PRN (09:00)
--- NOTE | 2017-11-21 09:24 | OPERATIVE REPORT ---
DATE OF OPERATION: 11/21/2017 SURGEON: Oskar Stewart MD NEMATOLOGY TEACHER: LOLLY Little PREOPERATIVE DIAGNOSIS: Right knee degenerative joint disease. POSTOPERATIVE DIAGNOSIS: Same. PROCEDURE PERFORMED: Right cemented posterior stabilized total knee arthroplasty. COMPLICATIONS: None. ESTIMATED BLOOD LOSS: 50 mL. FLUID REPLACEMENT: 1000 mL crystalloid fluid replacement. ANESTHESIA: Spinal with adductor canal block. DRAINS: None. SPECIMENS: Right knee sent for pathology. OPERATIVE INDICATIONS: The patient is a 52-year-old gentleman who has had a long history of knee problems in the past. He has right knee scope several years ago which provided some temporary relief. Over the years, he has developed increased pain and discomfort in his right knee. He had failed conservative treatment. He was actually scheduled to have his knee replaced elsewhere, but got canceled for unclear reasons. He has continued to have persistent pain and elected to proceed with right total knee arthroplasty. OPERATIVE FINDINGS: Operative findings revealed advanced right knee DJD. He had grade 4 [id number] disease of the medial and patellofemoral compartments, most severe in the medial side. He had osteophytes off the medial femoral condyle and medial tibial plateau. He had a large joint effusion. OPERATIVE IMPLANTS: Operative implants consisted of: 1. Biomet Vanguard size 67.5 right posterior stabilized femoral component. 2. Biomet size 71 tibial tray. 3. A 12 mm posterior stabilized polyethylene insert. 4. A 31 x 8 all-poly patella. OPERATIVE PROCEDURE: The patient was taken to the operating room, identified and placed on the operating table in supine position. All contact areas were appropriately padded. IV antibiotics were provided by anesthesia team. A spinal anesthetic and adductor canal block had been provided in the holding area. George catheter was placed in sterile fashion. Right thigh tourniquet was then placed and the right lower extremity was then prepped and draped in usual sterile fashion. The right leg was elevated and exsanguinated with Esmarch and tourniquet was placed at 300 mmHg. An anterior approach of the right knee was then performed through a longitudinal incision centered over the patella. Sharp dissection was carried out through the subcutaneous tissue down to the level of the extensor mechanism. A medial parapatellar arthrotomy incision was made. Some subperiosteal dissection was carried out medially. The fat pad was resected from beneath the patellar tendon. The lateral patellofemoral ligament was released. Patella was everted and knee was flexed. The osteophytes were taken off the distal femur. The ACL and PCL were then released from the distal femur and the tibia subluxated anteriorly. The external tibial alignment jig was then placed in the anterior face of the tibia and adjusted 16 mm medially. Proximal tibial cut was made to remove about a millimeter or 2 of bone from the most deficient aspect of the medial tibial plateau. Some osteophytes were taken off medial and posteromedially. Tibia size was size 71. I did downsize this slightly in order to rotate the tibial tray externally enough so was in the middle third of the tibial tubercle. Otherwise, it was internally rotated. Attention was then drawn to the femur. The distal femur was entered with a sharp drill bit. Intramedullary canal was suctioned. A right 6-degree valgus cutting guide was placed and distal femoral cutting block was pinned in place. Distal femoral cut was made to take an additional 3 mm of bone off the distal femur. The femur was then sized to a size 65.5. We did downsize this slightly. The AP cutting block was pinned parallel to the epicondylar axis, which was 3 degrees of external rotation. The anterior cut, anterior chamfer, posterior cut, posterior chamfer cuts were made. Box cutting guide was placed and adjusted slight lateral and the box cut was made. The knee was flexed. The remnants of the medial and lateral menisci were excised. The osteophytes were taken off the posterior aspect of the femur. Trial femoral component was placed. Tibial tray was pinned in maximum external rotation, and drill and stem punch were used to create defect in proximal tibia for the tibial tray. The knee was then trialed and the 12 mm insert fit most appropriately. Attention was then drawn to the patella. The patella was cleaned of all soft tissues. Patella thickness measured 23 mm in thickness was cut down to 14. It was sized to a size 31 patella. Lug holes were drilled for a 31 patella. Lateral osteophyte was removed. Patella button was placed. Knee was taken through range of motion and patella tracked nicely with no thumbs test. Attention was then drawn toward placement of permanent components. All trial components were removed. A bone plug was placed in the distal femur to limit blood loss. A double batch of Palacos G cement was mixed. A right size 67.5 posterior stabilized femoral component, size 71 tibial tray, 12 mm posterior stabilized polyethylene insert, and a 31 x 8 all poly patella then cemented in place. Knee was brought out into full extension until cement hardened. A final cement check was then performed. The pericapsular tissues were injected with a total of 100 mL of a combination of 20 mL Exparel, 30 mL of normal saline, 50 mL of 0.25% Marcaine with epinephrine. The patient did receive 1 gram of tranexamic acid. The tourniquet was then let down for final tourniquet time of 59 minutes. Hemostasis was assured using electrocautery. The extensor mechanism was then closed with combination of #1 PDS suture and #1 Vicryl suture in [id number] fashion. Extensor mechanism was checked and found to be intact. The subcutaneous tissue was then closed with #2 Dexon suture in a buried interrupted fashion. Skin was closed with skin holley. Leg was then cleaned, dried and a sterile dressing with Xeroform, 4 x 4's, sterile cast padding and Duane bandage were applied. The patient then transferred to the recovery room in stable condition. The patient tolerated the procedure well with no complication. All needle and sponge counts were correct at the end of the operation. I attest to the content of the Intraoperative Record and any orders documented therein. Any exception s are noted below.
--- NOTE | 2017-11-21 09:30 | DIAGNOSTIC IMAGING REPORT ---
TWO VIEWS RIGHT KNEE CLINICAL HISTORY: Postoperative examination. FINDINGS: AP and crosstable lateral portable views of the right knee are obtained. A right knee arthroplasty is in near anatomic alignment. There has been undersurface remodeling of the patella. No acute fracture is seen. There are expected postoperative changes around the knee including skin clips, soft tissue edema, and subcutaneous gas. IMPRESSION: Expected postoperative changes status post right knee arthroplasty. No acute fracture is seen. Electronically signed by: Rito Recio M.D. 11/21/2017 9:29 AM Dictated Date/Time: 11/21/2017 9:28 AM
--- NOTE | 2017-11-21 09:54 | Anesthesiology Progress Note ---
Anesthesia Post Op Note Date & Time November 21, 2017 at 09:54 Vital Signs Pain Intensity: 0 Vital Signs Past 12 Hours Date Time Temp Pulse Resp B/P (MAP) Pulse Ox O2 Delivery O2 Flow Rate FiO2 11/21/17 09:35 36.8 11/21/17 09:31 77 14 118/77 97 11/21/17 09:31 78 14 11/21/17 09:26 81 15 11/21/17 09:26 82 15 126/76 96 11/21/17 09:21 76 14 130/78 97 11/21/17 09:21 75 14 11/21/17 09:16 78 19 129/77 99 11/21/17 09:16 77 19 11/21/17 09:11 80 14 11/21/17 09:11 79 14 125/80 99 11/21/17 09:06 81 16 126/81 99 11/21/17 09:06 81 16 11/21/17 09:01 79 15 131/77 100 11/21/17 09:01 79 15 11/21/17 08:56 81 13 11/21/17 08:56 80 13 118/73 98 11/21/17 08:51 86 14 122/72 99 11/21/17 08:51 85 14 11/21/17 08:50 Nasal Cannula 3 11/21/17 08:47 126/73 11/21/17 08:41 36.9 83 16 123/78 98 Oxymask 4 11/21/17 05:41 36.5 87 20 126/85 97 Room Air Notes Mental Status: alert / awake / arousable, participated in evaluation Pt Amnestic to Procedure: Yes Nausea / Vomiting: adequately controlled Pain: adequately controlled Airway Patency, RR, SpO2: stable & adequate BP & HR: stable & adequate Hydration State: stable & adequate Neuraxial Anesthesia: was administered, sensory block is resolving Anesthetic Complications: no major complications apparent
[2017-11-21] MEDS: SODIUM CHLORIDE 0.9% 1000ML 1,000 ML IV SCH ×2 (12:26→19:25)
[2017-11-21] MEDS: TAPENTADOL ER 50 MG TABCR PO SCH ×2 (12:26→21:42)
[2017-11-21] MEDS: KETOROLAC TROMETHAMINE 30 MG/ML VIAL IV. SCH ×2 (12:27→19:25)
[2017-11-21] MEDS: MULTIVITAMIN TAB PO SCH (12:28)
[2017-11-21] MEDS: PANTOprazole SOD 40 MG TAB PO SCH (12:28)
[2017-11-21] MEDS: FERROUS GLUCONATE 324 MG TAB PO SCH ×2 (12:28→17:15)
[2017-11-21] MEDS: LISINOPRIL 40 MG TAB PO SCH (12:29)
[2017-11-21] MEDS: ASPIRIN 81 MG ECTAB PO SCH ×2 (12:29→21:42)
[2017-11-21] MEDS: DOCUSATE SODIUM 100 MG CAP PO SCH ×2 (12:31→21:44)
[2017-11-21] MEDS: INSULIN HUMAN REGULAR SC SCH ×3 (12:38→21:00)
[2017-11-21] MEDS: GABAPENTIN 300 MG CAP PO SCH ×2 (14:15→21:43)
[2017-11-21] MEDS: CEFAZOLIN IV 2,000 MG in SYRINGE 0 ML IV SCH ×2 (14:16→22:24)
[2017-11-21] MEDS: ACETAMINOPHEN 500 MG TAB PO SCH ×2 (14:16→21:45)
[2017-11-21] MEDS ORDERED: TRANEXAMIC ACID INJ 1,000 MG in SODIUM CHLORIDE 0.9% 100ML 100 ML IV SCH (15:30)
[2017-11-21] MEDS: HYDROmorphone INJ 0.5 MG/0.5 ML SYR IV PRN (15:59)
[2017-11-21] MEDS: CHECK SCOPOLAMINE PATCH PLACEMENT SCH (16:00)
[2017-11-21] MEDS: HYDROmorphone HCL 2 MG TAB PO PRN (17:15)
--- NOTE | 2017-11-21 19:19 | PROGRESS NOTE ---
DATE: 11/21/2017 SUBJECTIVE: A 52-year-old gentleman postop from a right knee replacement. She is doing pretty well. Pain is controlled. No chest pain, no shortness of breath. Not feeling dizzy or lightheaded. OBJECTIVE: VITAL SIGNS: Temperature 36.6. Stable. GENERAL: Exam reveals a healthy, pleasant, middle-aged male. He is sitting up in bed, is doing a heel prop this afternoon when I visited him. EXTREMITIES: Examination of the right leg reveals it to be well aligned. Dressing is clean, dry, and intact. He can dorsiflex and plantarflex his foot appropriately. He is neurologically intact. IMAGING: X-rays of the right knee from recovery room reviewed. It shows right cemented posterior stabilized total knee arthroplasty. Components looked to be in good position. No signs of problems. ASSESSMENT: A 52-year-old gentleman postop from a right knee replacement doing well. Pain is controlled. He is neurologically intact. PLAN: 1. DVT prophylaxis including thigh-high TEDs, SCDs, and aspirin twice a day. 2. PT/OT. Weightbear as tolerated. Right total knee protocol. 3. Pain control, doing reasonably well with current pain regimen. 4. IV antibiotics x24 hours. 5. Disposition: He is planning to be discharged to home with likely some home health or outpatient therapy once medically stable.
[2017-11-21] MEDS: VENLAFAXINE HCL XR 150 MG CAPXR PO SCH (21:42)
[2017-11-21] MEDS: SENNA 8.6 MG TAB PO SCH (21:44)
[2017-11-21] MEDS: VENLAFAXINE HCL XR 37.5 MG CAPXR PO SCH (21:44)
[2017-11-22] MEDS: CHECK SCOPOLAMINE PATCH PLACEMENT SCH ×4 (00:10→23:52)
[2017-11-22] MEDS: KETOROLAC TROMETHAMINE 30 MG/ML VIAL IV. SCH ×5 (00:11→23:53)
[2017-11-22] MEDS: SODIUM CHLORIDE 0.9% 1000ML 1,000 ML IV SCH ×2 (00:11→07:23)
[2017-11-22 03:15] VITALS: BP 120/77; PULSE 87; TEMP 36.5; O2SAT 95
[2017-11-22] MEDS: ACETAMINOPHEN 500 MG TAB PO SCH ×3 (05:57→21:01)
[2017-11-22 06:18] LABS: HEMATOCRIT 33.7 % (42-52); HEMOGLOBIN 11.4 g/dL (14.0-18.0); MEAN CELL VOLUME 91.8 fL (80-100); MEAN CORPUSCULAR HEMOGLOBIN 31.1 pg (25-34); MEAN CORPUSCULAR HGB CONC 33.8 g/dl (32-36); MEAN PLATELET VOLUME 10.5 fL (7.4-10.4); PLATELET COUNT 224 K/uL (130-400); RED CELL DISTRIBUTION WIDTH CV 14.3 % (11.5-14.5); RED CELL DISTRIBUTION WIDTH SD 46.8 fL (36.4-46.3); WHITE BLOOD COUNT 6.78 K/uL (4.8-10.8)
[2017-11-22 06:47] LABS: CALCIUM 8.1 mg/dl (8.5-10.1); CREATININE 0.98 mg/dl (0.60-1.40); POTASSIUM 4.7 mmol/L (3.5-5.1)
[2017-11-22 07:59] VITALS: BP 108/82; PULSE 68; TEMP 36.2; O2SAT 98
[2017-11-22] MEDS: INSULIN HUMAN REGULAR SC SCH ×4 (08:00→21:00)
[2017-11-22] MEDS: PANTOprazole SOD 40 MG TAB PO SCH (08:21)
[2017-11-22] MEDS: MULTIVITAMIN TAB PO SCH (08:21)
[2017-11-22] MEDS: LISINOPRIL 40 MG TAB PO SCH (08:22)
[2017-11-22] MEDS: GABAPENTIN 300 MG CAP PO SCH ×3 (08:22→21:02)
[2017-11-22] MEDS: DOCUSATE SODIUM 100 MG CAP PO SCH ×2 (08:22→21:02)
[2017-11-22] MEDS: FERROUS GLUCONATE 324 MG TAB PO SCH ×3 (08:23→18:05)
[2017-11-22] MEDS: ASPIRIN 81 MG ECTAB PO SCH ×2 (08:23→21:02)
[2017-11-22] MEDS: TAPENTADOL ER 50 MG TABCR PO SCH ×2 (08:25→21:01)
[2017-11-22] MEDS ORDERED: DLD/2 PO (08:53)
[2017-11-22] MEDS ORDERED: ACET-24 PO (08:53)
[2017-11-22] MEDS ORDERED: ASPI-320 PO (08:53)
--- NOTE | 2017-11-22 08:55 | Discharge Instructions ---
Discharge Instructions Date of Service November 22, 2017. Admission Reason for Admission: Right Knee Degenerative Joint Disease Discharge Discharge Diagnosis / Problem: Right Knee Replacement Discharge Goals Goal(s): Decrease discomfort, Improve function, Increase independence, Improve disease control, Therapeutic intervention Activity Recommendations Activity Limitations: per Instructions/Follow-up section Weightbearing Status: Right weightbearing . Instructions / Follow-Up Instructions / Follow-Up ACTIVITY RECOMMENDATIONS: Physical Therapy: * You will go to physical therapy three times each week for four to six weeks after your surgery in order to regain your knee range of motion and to retrain your knee to work properly. * It is just as important to make sure you are getting your knee perfectly straight as it is to regain your knee bend. * Taking a pain pill an hour before therapy can help you have a more productive and comfortable therapy session. Home Exercise: * You were shown a series of exercises (heel props, heel slides, etc.) in the hospital. Do these exercises three to four times each day including the exercises you were shown in physical therapy. Walking: * Get up and walk several times each day. For the first four weeks, try not to stand or walk for more than one hour at a time. If you do stand or walk for more than one hour, you will not hurt anything, but your knee and leg will likely swell. * As you feel comfortable, you may change from the walker or crutches to a cane and then to independent walking. MEDICATIONS: New Medicine: * You will likely be taking one or more of these medications: 1. Dilaudid - A quick and shorter-acting pain medication. Take one to two tablets every four to six hours to lessen your pain. 2. Aspirin - Thins your blood to lessen the chance of forming a blood clot. * The most common side effects of pain medicine and iron are nausea and constipation. If nausea or constipation is too much of a problem or if you have any questions about your new medicines or doses, call [facility] at [phone]. We will try to help you manage these issues. VERY IMPORTANT TO READ AND REVIEW" Pain: * The immediate post-operative period after knee replacement surgery is often quite painful. * You are given a prescription for pain medicine. You should take it, as directed, when you need it, especially before physical therapy and before going to bed. Pain that interferes with sleep is very common and can last several months. * You will likely need pain medicine for the first four to six weeks. It will not stop all of the pain. The pain will lessen and as you feel better, you may change to milder pain medicine such as Tylenol. * The most common side effects of pain medicine are nausea and constipation, so don't take more than you need. SPECIAL CARE INSTRUCTIONS: TEDs/Elastic Stockings: * The white elastic stockings help limit swelling and prevent blood clots from forming in your legs. The more you wear them, the more they work. * Wear them for six weeks after knee replacement surgery and four weeks after partial knee replacement. Prevention of Infection: * Take antibiotics one hour before any dental cleaning, dental work, urological procedure, gastrointestinal procedure or any invasive surgery in order to prevent your new joint from getting infected. * You may get the antibiotics from the doctor performing the procedure or you may call our office at before and we will call in a prescription to the pharmacy of your choice. Things to Watch For: * Drainage from the incision site that occurs more than one week after your surgery. * Severely increased knee/leg pain or swelling. * Increased redness at the incision site. * Fever above 102 degrees Fahrenheit. * Unusual chest pain or shortness of breath. * Unusual pain or burning with urination. Call [facility] at with any of the above problems or if you have any questions about your medicines or recovery. FOLLOW UP VISIT: Make an appointment to see your doctor for approximately two weeks after surgery for a progress check and staple removal by calling the office at . Current Hospital Diet Patient's current hospital diet: Diabetes Type 2 Diet Discharge Diet Recommended Diet: Diabetes Type 2 Diet Procedures Procedures Performed: Right Total Knee Arthroplasty Pending Studies Studies pending at discharge: no Laboratory Results Hemoglobin A1c Test 11/03/17 14:46 Range/Units Estimated Average Glucose 126 mg/dl Hemoglobin A1c 6.0 H 4.5-5.6 % Medical Emergencies . Who to Call and When: Medical Emergencies: If at any time you feel your situation is an emergency, please call 911 immediately. . Non-Emergent Contact Non-Emergency issues call your: Surgeon . "Provider Documentation" section prepared by Oskar Stewart. .
[2017-11-22] MEDS: HYDROmorphone HCL 2 MG TAB PO PRN ×2 (10:01→16:13)
[2017-11-22 10:35] VITALS: O2SAT 98
[2017-11-22] MEDS: HYDROmorphone INJ 0.5 MG/0.5 ML SYR IV PRN (10:51)
--- NOTE | 2017-11-22 11:41 | PROGRESS NOTE ---
DATE: 11/22/2017 SUBJECTIVE: A 52-year-old gentleman postop day 1 from a right knee replacement. He is doing pretty well. A little bit more pain than he was having last evening. Still very manageable. No chest pain or shortness of breath. Not feeling dizzy or lightheaded. OBJECTIVE: VITAL SIGNS: Temperature is 36.2. Vital signs stable. PHYSICAL EXAMINATION: GENERAL: Reveals a pleasant, middle-aged male. He was walking around his room with the occupational therapist this morning when I visited him. EXTREMITIES: Dressing is clean, dry, and intact. He can dorsiflex and plantarflex his foot appropriately. He is neurologically intact. LABORATORY DATA: Hemoglobin is 11.4. Hematocrit 33.7. Electrolytes are stable. ASSESSMENT: A 52-year-old gentleman postop day 1 from right knee replacement, doing pretty well. Pain is reasonably well controlled. PLAN: 1. DVT prophylaxis include thigh-high TEDs, SCDs, and aspirin twice a day. 2. PT/OT. Weight bear as tolerated. Right total knee protocol. 3. Pain control. Doing reasonably well with current pain regimen. 4. Disposition: Plan to discharge to home once medically stable.
[2017-11-22 11:50] VITALS: BP 118/82; PULSE 76; TEMP 36.3; O2SAT 98
[2017-11-22 15:05] VITALS: BP 115/74; PULSE 82; TEMP 36.5; O2SAT 95
[2017-11-22] MEDS: VENLAFAXINE HCL XR 37.5 MG CAPXR PO SCH (21:02)
[2017-11-22] MEDS: VENLAFAXINE HCL XR 150 MG CAPXR PO SCH (21:02)
[2017-11-22] MEDS: SENNA 8.6 MG TAB PO SCH (21:03)
[2017-11-22 23:04] VITALS: BP 133/76; PULSE 82; TEMP 36.5; O2SAT 91
[2017-11-23] MEDS: KETOROLAC TROMETHAMINE 30 MG/ML VIAL IV. SCH (05:54)
[2017-11-23] MEDS: ACETAMINOPHEN 500 MG TAB PO SCH (05:55)
[2017-11-23 06:18] VITALS: BP 108/74; PULSE 84; TEMP 36.7; O2SAT 96
[2017-11-23] MEDS: CHECK SCOPOLAMINE PATCH PLACEMENT SCH (07:44)
[2017-11-23] MEDS: ASPIRIN 81 MG ECTAB PO SCH (07:45)
[2017-11-23] MEDS: FERROUS GLUCONATE 324 MG TAB PO SCH (07:45)
[2017-11-23] MEDS: DOCUSATE SODIUM 100 MG CAP PO SCH (07:45)
[2017-11-23] MEDS: MULTIVITAMIN TAB PO SCH (07:46)
[2017-11-23] MEDS: GABAPENTIN 300 MG CAP PO SCH (07:46)
[2017-11-23] MEDS: PANTOprazole SOD 40 MG TAB PO SCH (07:46)
[2017-11-23] MEDS: LISINOPRIL 40 MG TAB PO SCH (07:47)
[2017-11-23] MEDS: TAPENTADOL ER 50 MG TABCR PO SCH (07:49)
[2017-11-23] MEDS: INSULIN HUMAN REGULAR SC SCH (07:50)
--- NOTE | 2017-11-23 08:12 | PROGRESS NOTE ---
DATE: 11/23/2017 SUBJECTIVE: A 52-year-old gentleman postop day 2 from right knee replacement. He is doing well. Pain is controlled. No chest pain or shortness of breath. Not feeling dizzy or lightheaded. OBJECTIVE: VITAL SIGNS: Temperature is 36.7. Vital signs stable. GENERAL: Physical examination reveals a healthy, pleasant, middle-aged male. The patient is sitting up in bed and eating breakfast. Looks pretty comfortable. EXTREMITIES: Examination of the right leg reveals the dressing to be clean, dry, and intact. He can dorsiflex and plantarflex his foot appropriately. He is neurologically intact. ASSESSMENT: A 52-year-old gentleman postop day 2 from a right knee replacement, doing well. Pain is controlled. PLAN: 1. DVT prophylaxis including thigh-high TEDs, SCDs, and aspirin twice a day. 2. PT/OT. Weight bear as tolerated. Right total knee protocol. 3. Pain control, doing pretty well with current pain regimen. 4. Disposition: Plan to discharge to home with some home health later today.
[2017-11-23 10:37] VITALS: BP 108/74; PULSE 84; TEMP 36.7; O2SAT 96
[2017-11-23] MEDS: HYDROmorphone HCL 2 MG TAB PO PRN (10:53)
--- NOTE | 2017-11-29 02:02 | DISCHARGE SUMMARY ---
ADMITTING PHYSICIAN AND SURGEON: Dr. Stewart. ADMITTING DIAGNOSIS: Right knee degenerative joint disease. SURGERY PERFORMED: Right total knee arthroplasty. SECONDARY DIAGNOSES: Hypertension, history of seizure disorder, neck and back pain, anxiety, depression, diabetes, anemia. CONSULTS: None obtained. HISTORY AND PHYSICAL EXAMINATION: Well documented in the patient's chart. HOSPITAL COURSE: Patient was admitted on 11/21/2017, underwent total knee arthroplasty, tolerated the procedure well. There were no complications. He was transferred to the PACU postoperatively and later to the orthopedic floor for further care. He was given Ancef for antibiotic prophylaxis, SHIMA stockings, SCDs and aspirin for DVT prophylaxis. Hemoglobin, hematocrit and vital signs were monitored during his hospital stay and remained stable. He did not require any blood transfusions. There were no complications. After postoperative day 2, he was tolerating a diabetic diet. Pain was controlled with oral pain medicine. He was participating in physical therapy. On postop day 2, he was discharged home, set up with home health services. He was given printed discharge instructions including new prescriptions for extra strength Tylenol, aspirin and hydromorphone. Continue his home medications with the exception of his home dose of aspirin which was changed. Continue physical therapy, weightbearing as tolerated, SHIMA stockings. Follow up in 10-12 days or sooner if there are any problems or concerns.
== END 2017-11-23 11:14 | disposition home health service (06) | DRG 470 ==
LOC: C.ACU 05:02 → C.3E 06:36 → ENRESERV 09:14
PROVIDERS: ADMIT Orthopaedic Surgery Sports Medicine; ATTEND Orthopaedic Surgery Sports Medicine
PROC: 0SRC0J9 Replacement of Right Knee Joint with Synthetic Substitute, Cemented, Open Approach (ICD-10-PCS; principal; 2017-11-21 07:00)
DX: M17.11 Unilateral primary osteoarthritis, right knee (principal); G40.909 Epilepsy, unspecified, not intractable, without status epilepticus; E11.9 Type 2 diabetes mellitus without complications; I10 Essential (primary) hypertension; F41.8 Other specified anxiety disorders; Z96.652 Presence of left artificial knee joint; Z88.8 Allergy status to other drugs, medicaments and biological substances

== ENCOUNTER → 2017-12-06 | Outpatient (CLI) | payer OTHER ==
[~2017-12-06] MED LIST changes: +ACET-24 PO; +ASPI-320 PO; -ASPI81TA28 PO; +DLD/2 PO; -LACTATED RINGER'S 1000ML 1,000 ML IV SCH; -LACTATED RINGER'S 1000ML 500 ML IV SCH
[2017-12-06 12:28] LABS: BASO % 0.8 %; BASO ABS # 0.04 K/uL (0-0.2); EOS % 4.4 %; EOS ABS # 0.22 K/uL (0-0.5); HEMATOCRIT 36.6 % (42-52); HEMOGLOBIN 12.3 g/dL (14.0-18.0); IG# 0.01 K/uL (0.00-0.02); LYMPH % 24.9 %; LYMPH ABS # 1.24 K/uL (1.2-3.4); MEAN CELL VOLUME 90.6 fL (80-100); MEAN CORPUSCULAR HEMOGLOBIN 30.4 pg (25-34); MEAN CORPUSCULAR HGB CONC 33.6 g/dl (32-36); MEAN PLATELET VOLUME 10.7 fL (7.4-10.4); MONO % 7.6 %; MONO ABS # 0.38 K/uL (0.11-0.59); NEUT % 62.1 %; NEUT ABS # 3.08 K/uL (1.4-6.5); PLATELET COUNT 332 K/uL (130-400); RED CELL DISTRIBUTION WIDTH CV 14.6 % (11.5-14.5); RED CELL DISTRIBUTION WIDTH SD 47.8 fL (36.4-46.3); WHITE BLOOD COUNT 4.97 K/uL (4.8-10.8)
== END | disposition home or self-care (01) ==
LOC: C.LABBFT 08:23
PROVIDERS: ATTEND Psychiatry & Neurology Psychiatry
DX: F32.9 Major depressive disorder, single episode, unspecified (principal)

== ENCOUNTER 2025-04-01 05:52 | Inpatient (IN) ==
--- NOTE | 2025-03-13 13:17 | PAT Medication Instructions ---
Medication Instructions Date of Service March 13, 2025 Home Medications Medication Instructions Recorded epinephrine 0.3 mg/0.3 mL 0.3 mg (0.3 mL) IM ONCE PRN 12/17/20 injection, auto-injector (EpiPen bronchodilation #1 ea 2-Francisco) metoprolol succinate 25 mg 25 mg PO QAM #90 tabs 11/13/24 tablet,extended release 24 hr semaglutide 0.25 mg or 0.5 mg (2 0.5 mg (0.736 mL) subcut .COMPLEX 11/20/24 mg/3 mL) subcutaneous pen injector #3 mL (Ozempic) tadalafil 5 mg tablet 5 mg PO QPM #90 tabs 01/15/25 tamsulosin 0.4 mg capsule 0.4 mg PO HS #90 caps 01/15/25 diclofenac sodium 1 % topical gel 2 g topical QID #200 grams 01/29/25 (Voltaren Arthritis Pain) diclofenac sodium 75 mg 75 mg PO BID PRN pain #60 tabs 01/29/25 tablet,delayed release amlodipine 10 mg tablet 10 mg PO QAM #90 tabs 02/20/25 atorvastatin 20 mg tablet 20 mg PO QPM #90 tabs 03/04/25 cholecalciferol (vitamin D3) 25 mcg (1,000 unit) capsule 1,000 unit PO QAM epinephrine 0.3 mg/0.3 mL injection, auto-injector (EpiPen 2-Francisco) 0.3 mg (0.3 mL) IM ONCE PRN bronchodilation venlafaxine 150 mg capsule,extended release 24 hr 150 mg PO QAM venlafaxine 75 mg capsule,extended release 24 hr 75 mg PO QAM aspirin 81 mg tablet,delayed release 81 mg PO QAM metoprolol succinate 25 mg tablet,extended release 24 hr 25 mg PO QAM semaglutide 0.25 mg or 0.5 mg (2 mg/3 mL) subcutaneous pen injector (Ozempic) 0.5 mg (0.736 mL) subcut .COMPLEX tadalafil 5 mg tablet 5 mg PO QPM tamsulosin 0.4 mg capsule 0.4 mg PO HS diclofenac sodium 1 % topical gel (Voltaren Arthritis Pain) 2 g topical QID diclofenac sodium 75 mg tablet,delayed release 75 mg PO BID PRN pain amlodipine 10 mg tablet 10 mg PO QAM atorvastatin 20 mg tablet 20 mg PO QPM cyanocobalamin (vitamin B-12) 1,000 mcg tablet 1,000 mcg PO QAM hydroxychloroquine 200 mg tablet 200 mg PO BID Continue as directed epinephrine 0.3 mg/0.3 mL injection, auto-injector (EpiPen 2-Francisco) 0.3 mg (0.3 mL) IM ONCE PRN bronchodilation STOP 7 days prior to surgery semaglutide 0.25 mg or 0.5 mg (2 mg/3 mL) subcutaneous pen injector (Ozempic) 0.5 mg (0.736 mL) subcut .COMPLEX ASK your surgeon for instructions diclofenac sodium 75 mg tablet,delayed release 75 mg PO BID PRN pain STOP taking 24 hours before surgery diclofenac sodium 1 % topical gel (Voltaren Arthritis Pain) 2 g topical QID (unless told otherwise by surgeon) DO NOT take the morning of surgery cholecalciferol (vitamin D3) 25 mcg (1,000 unit) capsule 1,000 unit PO QAM cyanocobalamin (vitamin B-12) 1,000 mcg tablet 1,000 mcg PO QAM Take morning of surgery With a small sip of water, OTHERWISE NOTHING TO EAT OR DRINK AFTER MIDNIGHT: venlafaxine 150 mg capsule,extended release 24 hr 150 mg PO QAM venlafaxine 75 mg capsule,extended release 24 hr 75 mg PO QAM metoprolol succinate 25 mg tablet,extended release 24 hr 25 mg PO QAM amlodipine 10 mg tablet 10 mg PO QAM hydroxychloroquine 200 mg tablet 200 mg PO BID Take evening before surgery tadalafil 5 mg tablet 5 mg PO QPM tamsulosin 0.4 mg capsule 0.4 mg PO HS atorvastatin 20 mg tablet 20 mg PO QPM hydroxychloroquine 200 mg tablet 200 mg PO BID Other Notes If you have any questions please call us at [phone] or [phone] or [phone] or [phone]
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
[2025-04-01] MEDS: ACETAMINOPHEN 500 MG TAB PO SCH (06:24)
[2025-04-01] MEDS: LR 15ML/HR IV SCH (06:25)
[2025-04-01] MEDS: LR 60ML/HR IV SCH (06:25)
[2025-04-01] MEDS ORDERED: KETAMINE HCL 10MG/ML SYR ONE (06:45)
[2025-04-01] MEDS ORDERED: LIDOCAINE 2% 2 ML VIAL/AMP(20MG/ML) INFIL ONE (06:45)
[2025-04-01] MEDS ORDERED: DEXAMETHASONE SOD INJ 4 MG/ML VIAL ONE ×2 (06:45→07:09)
[2025-04-01] MEDS ORDERED: ROCURONIUM BROMIDE 10 MG/ML 5 ML VIAL IV ONE (06:45)
[2025-04-01] MEDS ORDERED: ONDANSETRON INJ 2 MG/ML 2 ML VIAL ONE (06:45)
[2025-04-01] MEDS ORDERED: MIDAZOLAM HCL 1 MG/ML 2ML VIAL ONE (06:45)
[2025-04-01] MEDS ORDERED: PROPOFOL IV EMULSION 10 MG/ML 20 ML VIAL IV ONE (06:45)
[2025-04-01] MEDS ORDERED: SUCCINYLCHOLINE CHLORIDE 20 MG/ML 10 ML VIAL IV ONE (06:51)
[2025-04-01] MEDS ORDERED: PROPOFOL IV EMULSION 10 MG/ML 100 ML VIAL IV ONE ×4 (06:51→13:01)
[2025-04-01] MEDS ORDERED: REMIFENTANIL HCL 1 MG VIAL IV ONE ×5 (06:51→11:58)
--- NOTE | 2025-04-01 07:25 | History & Physical Bridge Note ---
Date of Service April 01, 2025 History & Physical Bridge Note I have examined the patient, reviewed the History & Physical and in the interval since the performance of the History & Physical I have noted the following changes of clinical significance: no changes noted
[2025-04-01] MEDS ORDERED: PROMETHAZINE HCL 6.25 MG in SODIUM CHLORIDE 0.9% 50 ML IV PRN (09:06)
[2025-04-01] MEDS ORDERED: ONDANSETRON INJ 2 MG/ML 2 ML VIAL IV PRN ×2 (09:06→14:29)
[2025-04-01] MEDS ORDERED: NALOXONE HCL 0.4 MG/1 ML VIAL/CARP IV PRN ×2 (09:06→14:29)
[2025-04-01] MEDS ORDERED: ATROPINE SULFATE 0.1 MG/ML 10ML SYR IV PRN (09:06)
[2025-04-01] MEDS ORDERED: HYDROmorphone INJ 1 MG/ML SYRINGE IV PRN (09:06)
[2025-04-01] MEDS ORDERED: FLUMAZENIL 0.1 MG/1 ML 10 ML VIAL IV PRN (09:06)
[2025-04-01] MEDS: FLOSEAL HEMOSTATIC MATRIX 5ML TOP ONE (10:58)
[2025-04-01] MEDS ORDERED: ceFAZolin 330 MG/ML 1 GM VIAL ONE (11:38)
[2025-04-01] MEDS ORDERED: SODIUM CHLORIDE 0.9% PF INJ 10 ML VIAL ONE (11:39)
[2025-04-01] MEDS ORDERED: ePHEDrine sulfate 50 MG/5 ML SYR ONE (11:43)
[2025-04-01] MEDS ORDERED: PHENYLEPHRINE 100MCG/ML 5ML SYR ONE (11:43)
[2025-04-01] MEDS ORDERED: HYDROmorphone INJ 2 MG/ML SYR/VIAL ONE (12:23)
[2025-04-01] MEDS ORDERED: SUGAMMADEX SODIUM 200 MG/2 ML VIAL IV ONE (13:44)
[2025-04-01] MEDS: VANCOMYCIN HCL 1000MG/20ML VIAL ONE (13:50)
[2025-04-01] MEDS: BUPIVACAINE/EPINEPHRINE 0.5% MPF 1:200,000 30 ML VIAL ONE (14:00)
--- NOTE | 2025-04-01 14:06 | Fluoroscopy Report ---
FL lumbar spine 2-3V CLINICAL HISTORY: L3-L4 LATERAL INTERBODY L3-L4 FUSION COMPARISON STUDY: None FLUOROSCOPY TIME: 86 seconds FLUOROSCOPY IMAGES: 11 EXPOSURE DOSE: 63 mGy FINDINGS: Fluoroscopy was provided for L3-4 interbody fusion. IMPRESSION: Intraoperative fluoroscopy. ACT 112: Negative or not required by law. Electronically signed by: Arash Jaime M.D. 04/01/2025 2:05 PM
[2025-04-01] MEDS: GELATIN SPONGE 12-7MM ONE (14:13)
[2025-04-01] MEDS: THROMBIN 5000 UNITS KIT ONE (14:13)
[2025-04-01] MEDS ORDERED: METOCLOPRAMIDE HCL INJ 5 MG/ML 2 ML VIAL IV PRN (14:29)
[2025-04-01] MEDS ORDERED: ONDANSETRON 4 MG OD TAB PO PRN (14:29)
[2025-04-01] MEDS ORDERED: SOD PHOSPHATE/SOD BIPHOSPHATE ENEMA 132 ML BTL PR PRN (14:29)
[2025-04-01] MEDS ORDERED: ACETAMINOPHEN 500 MG TAB PO PRN (14:29)
[2025-04-01] MEDS ORDERED: PROMETHAZINE 12.5 MG/50.5 ML BAG IV PRN (14:29)
[2025-04-01] MEDS ORDERED: DO NOT ADMINISTER PNEUMOCOCCAL VACCINE PRN (14:29)
[2025-04-01] MEDS ORDERED: ACETAMINOPHEN 1,000 MG/100 ML VIAL IV PRN (14:29)
[2025-04-01] MEDS ORDERED: ALUMINUM/MAGNESIUM SUSP 30 ML UDC PO PRN (14:29)
[2025-04-01] MEDS ORDERED: DO NOT ADMINISTER FLU VACCINE PRN (14:29)
[2025-04-01] MEDS ORDERED: diphenhydrAMINE Capsule 25 MG CAP PO PRN (14:29)
[2025-04-01] MEDS ORDERED: FAMOTIDINE 20 MG TAB PO PRN (14:29)
[2025-04-01] MEDS ORDERED: LORazepam 0.5 MG TAB PO PRN (14:29)
[2025-04-01] MEDS ORDERED: MAGNESIUM HYDROXIDE SUSP 30 ML UDC PO PRN (14:29)
[2025-04-01] MEDS ORDERED: HYDROmorphone INJ 0.5 MG/0.5 ML SYR IV PRN (14:29)
--- NOTE | 2025-04-01 14:29 | Post Operative Brief Note ---
PG Immediate Post Op with CF Date of Surgery April 01, 2025 Pre & Post Diagnosis Operation Date: 04/03/25 07:15 <No data on this case meets the specified criteria> I identified the patient and participated in the time-out.: Yes Procedure Operation Date: 04/03/25 07:15 <No data on this case meets the specified criteria> Surgeon Kiko Jones MD Vest Baster Juanpablo Estimated Blood Loss 100 Findings Consistent with Post-Op Diagnosis Specimens Specimen Description: None per surgeon Drains George Catheter
--- NOTE | 2025-04-01 15:15 | Anesthesiology Progress Note ---
Date of Service April 01, 2025 Anesthesia Post Procedure Vital Signs Vital Signs: Temp Pulse Pulse Resp BP Pulse Ox O2 Del Method 04/01/25 15:10 79 12 109/58 L 92 Nasal Cannula 04/01/25 15:00 36.4 C L 85 14 101/56 L 92 Nasal Cannula 04/01/25 14:50 82 12 105/52 L 95 Nasal Cannula 04/01/25 14:40 83 12 93/55 L 94 Oxymask 04/01/25 14:30 87 20 91/55 L 94 Oxymask 04/01/25 14:20 36 C L 85 20 96/57 L 92 Oxymask 04/01/25 06:14 36.4 C L 91 H 16 136/94 95 Room Air O2 Flow Rate 04/01/25 15:10 3 04/01/25 15:00 3 04/01/25 14:50 4 04/01/25 14:40 6 04/01/25 14:30 6 04/01/25 14:20 8 04/01/25 06:14 Pain Intensity Bilateral Lower Back: Pain Intensity: 6 Transfer of Care Handoff Completed per policy Notes Mental Status: alert / awake / arousable and participated in evaluation Patient Amnestic to Procedure: Yes Nausea / Vomiting: adequately controlled Pain: adequately controlled Airway Patency, RR, SpO2: stable & adequate BP & HR: stable & adequate Hydration State: stable & adequate Anesthetic Complications: no major complications apparent and Pt Satisfied with anesthetic care
[2025-04-01] MEDS: HYDROmorphone INJ 1 MG/ML SYRINGE IV PRN (17:31)
[2025-04-01 17:55] VITALS: RESP 16
--- NOTE | 2025-04-01 18:26 | Hospitalist Progress Note ---
Date of Service April 01, 2025 Assessment & Plan (1) Recurrent herniation of lumbar disc: (2) Cardiomyopathy: (3) Type II diabetes mellitus: (4) Arthritis: Plan #Status post lumbar surgery/back painper orthopedics. Fortunately a wide array of medications are orderedencourage patient to stay ahead of pain and to reach out if pain is uncontrolled #type 2 diabeteslast A1c was 5.6 only about a month ago. His sugars right now could potentially get a little bit high simply from dexamethasone utilized as part of anesthesiawith that in mind I have ordered very loose sliding scale coverage and am not sure if he will really need any, obviously will follow sugars and adjust medications if needed. #Nonischemic cardiomyopathyno respiratory symptoms. Continue his amlodipine and metoprolol #arthritiscontinue Plaquenil #DVT prophylaxisper orthopedics Admission and Anticipated Discharge Date Admission Date: April 01, 2025 Subjective Patient seen postop. Fairly severe back pain but otherwise doing okay. Just got Percocet as I was entering the room. No other complaints. Breathing feels good. Belly feels good. Notes that he has been working very hard and reclaiming his health and has actually gotten his sugar under great control, and is hoping to maybe get rid of his Ozempic in the near futureespecially if the back surgery allows him to get more active. No other complaints. Review of systems otherwise negative except for as above. Review of Systems Review of Systems: All systems reviewed & are unremarkable except as noted in HPI & below Physical Exam Physical Exam: In general he is awake alert oriented x 3 pleasant no distress. HEENT normocephalic atraumatic mucous membranes moist. Breathing unlabored no accessory muscle use good effort. Skin without rashes pallor or icterus. Neuro without focal deficits. Mental status seems good recent and remote recall normal mood and affect good judgment and insight. Results & Data Results & Data Vital Signs (Past 12 Hours) Vital Signs Temp Pulse Pulse Resp BP Pulse Ox O2 Del Method 04/01/25 17:53 95 H 16 128/83 90 Nasal Cannula 04/01/25 17:26 91 H 18 127/82 93 Room Air 04/01/25 17:00 Nasal Cannula 04/01/25 17:00 97.7 F 87 18 122/78 95 Nasal Cannula 04/01/25 16:30 87 16 120/76 92 Nasal Cannula 04/01/25 16:15 84 14 120/81 92 Nasal Cannula 04/01/25 16:00 80 14 103/69 94 Nasal Cannula 04/01/25 15:30 86 12 101/58 L 93 Nasal Cannula 04/01/25 15:15 78 14 102/57 L 92 Nasal Cannula 04/01/25 15:10 79 12 109/58 L 92 Nasal Cannula 04/01/25 15:00 97.5 F L 85 14 101/56 L 92 Nasal Cannula 04/01/25 14:50 82 12 105/52 L 95 Nasal Cannula 04/01/25 14:40 83 12 93/55 L 94 Oxymask 04/01/25 14:30 87 20 91/55 L 94 Oxymask 04/01/25 14:20 96.8 F L 85 20 96/57 L 92 Oxymask O2 Flow Rate 04/01/25 17:53 3 04/01/25 17:26 3 04/01/25 17:00 3 04/01/25 17:00 3 04/01/25 16:30 3 04/01/25 16:15 3 04/01/25 16:00 3 04/01/25 15:30 3 04/01/25 15:15 3 04/01/25 15:10 3 04/01/25 15:00 3 04/01/25 14:50 4 04/01/25 14:40 6 04/01/25 14:30 6 04/01/25 14:20 8 PG Care Time/CCT Total # of Minutes Spent Total Time Spent with Patient: Total time spent is greater than 50% in coordination of care (as documented) at patient's floor/unit and/or counseling patient: Coding Level of Care Code 87987 SUB INP/OBS CARE 3/50MIN Diagnoses Recurrent herniation of lumbar disc M51.26 Cardiomyopathy, unspecified type I42.9 Cardiomyopathy type: unspecified Type II diabetes mellitus E11.9 Arthritis M19.90 (2) Cardiomyopathy Cardiomyopathy type: unspecified Qualified Code(s): I42.9 - Cardiomyopathy, unspecified
[2025-04-01] MEDS: DOCUSATE SODIUM/SENNA 50/8.6MG TAB PO SCH (20:59)
[2025-04-01] MEDS: HYDROXYCHLOROQUINE SULFATE 200 MG TAB PO SCH (21:00)
[2025-04-01] MEDS: INSULIN ASPART PER UNIT CHARGE SC SCH (21:00)
[2025-04-02] MEDS: POLYETHYLENE (MIRALAX) 17 GM PACK PO SCH (05:30)
[2025-04-02 07:33] VITALS: O2SAT 95
[2025-04-02 07:35] LABS: Hematocrit (blood only) 35.4 % (42.0-52.0); Hemoglobin 12.1 g/dl (14.0-18.0); Immature Granulocytes # (auto) 0.04 K/uL (0.01-0.20); Immature Granulocytes % (auto) 0.4 %; Mean Corpuscular Hemoglobin 31.1 pg (25.0-34.0); Mean Corpuscular Volume 91.0 fL (80.0-100.0); Platelet Count 179 K/uL (130-400); RDW Standard Deviation 46.8 fL (36.4-46.3); Red Blood Count 3.89 M/uL (4.70-6.10); White Blood Count 9.24 K/ul (4.8-10.8)
[2025-04-02 07:53] LABS: Anion Gap 4.0 (3-11); Blood Urea Nitrogen 11.0 mg/dl (6-23); Calcium 8.8 mg/dl (8.6-10.3); Carbon Dioxide 29.0 mmol/L (21-32); Chloride 106.0 mmol/L (98-107); Creatinine Clr Calc Pharmacy 97.5 ml/min; Glucose 126.0 mg/dl (70-99(Fasting)); Potassium 4.4 mmol/L (3.5-5.1); Sodium 139.0 mmol/L (136-145)
[2025-04-02] MEDS: METOPROLOL SUCC 25MG EXT REL TAB PO SCH (09:24)
--- NOTE | 2025-04-02 09:49 | Orthopedic Progress Note ---
Date of Service April 02, 2025 Assessment & Plan (1) Degenerative spondylolisthesis: * Continue Current Treatment * Disposition: Home * Daily treatment: Physical Therapy/ Occupational Therapy per protocol * Weight bearing status: WBAT * Continue to monitor for ABLA * Pain control * Office/hospital f/u 2 weeks for progress check and staple/suture removal * Plan for discharge today/tomorrow pending PT/OT clearance. Will evaluate after lunch Subjective .Active Problems: S/p L3-L4 Lateral Interbody Fusion, L3-L4 Revision Discectomy Post Fusion Instrumentation, Spinal Cord Monitoring POD 1 59 y/o male s/p L3-L4 Lateral Interbody Fusion, L3-L4 Revision Discectomy Post Fusion Instrumentation, Spinal Cord Monitoring. Doing well overall, pain managed and improved function. Mild low back pain, significantly improved RLE pain. Denies fever/chills, chest pain/SOB, nausea/vomiting. Otherwise no complaints. Review of Systems All systems reviewed & are unremarkable except as noted in HPI & below. Physical Exam . * General: Alert and oriented, no acute distress * Constitutional: well-developed, well-nourished. * Respiratory: Normal respiratory effort, no distress * Gastrointestinal: No tenderness to palpation, no rigidity or guarding. * Skin: No rash or lesion. * Neurologic: Grossly normal * Musculoskeletal: Surgical dressing CDI. Lumbar spine region without obvious deformity or overlying skin changes. Minimal tenderness of surgical region, otherwise no tenderness b/l buttock or LE. Lumbar flexion/extension and rotation ROM with minimal pain. AROM b/l hip flexion, knee flexion/extension, ankle flexion/extension intact. Sensation intact plantar/dorsal foot. Brisk capillary refill. Results & Data Results & Data Laboratory Results . PG Care Time/CCT Total # of Minutes Spent Total Time Spent with Patient: Total time spent is greater than 50% in coordination of care (as documented) at patient's floor/unit and/or counseling patient: Coding Level of Care Code 80894 Post Operative Follow-Up Diagnoses Degenerative spondylolisthesis M43.10
[2025-04-02 11:49] VITALS: BP 155/105; PULSE 73; TEMP 98.1
--- NOTE | 2025-04-02 14:31 | Hospitalist Progress Note ---
Date of Service April 02, 2025 Assessment & Plan Admission and Anticipated Discharge Date Admission Date: April 01, 2025 Supervising Physician Co-Signing Physician Notes I personally examined the patient and verified all frances points of history and exam, discussed case, and agree with decision making with Dr Guallpa Doing well. Walking with physical therapy. Even is able to navigate stairs. Pain under better control. Vitals noted, in general he is awake and alert pleasant no distress. HEENT normocephalic atraumatic mucous membranes moist. Breathing unlabored no accessory muscle use good effort. Skin without rashes pallor or icterus. Gait as above. Status post lumbar surgerydoing well. Anticipate discharge today. Diabetes/arthritis/cardiomyopathymedically stable. Home medications. Fortunately no interventions were needed while here. Results & Data Results & Data Vital Signs (Past 12 Hours) Vital Signs Temp Pulse Resp BP Pulse Ox O2 Del Method 04/02/25 11:45 36.7 C 73 16 155/105 H 95 Room Air 04/02/25 07:32 36.5 C 76 16 146/97 H 95 Room Air
--- NOTE | 2025-04-02 18:56 | Billing Data ---
Date of Service April 02, 2025 Coding Level of Care Code 01390 SUB INP/OBS CARE
--- NOTE | 2025-04-03 14:55 | Operative Report ---
PG Post Operative Report Pre & Post Diagnosis Operation Date: 04/03/25 07:15 <No data on this case meets the specified criteria> I identified the patient and participated in the time-out.: Yes Procedure Operation Date: 04/03/25 07:15 <No data on this case meets the specified criteria> Surgeon Kiko Jones MD Construction Ironworker Helper MD Juanpablo Estimated Blood Loss 100 Findings Consistent with Post-Op Diagnosis Specimens none Description of Procedure 1. L3-4 oblique lumbar interbody arthrodesis (OLIF). (69169) 2. L3-4 interbody cage, camber Spira O implant, 30 x 38 x 11 mm lordotic. (7 [id number]) 3. L3-4 nonsegmental instrumentation, [employer]. (32571) 4. Stereotactic CT-guided navigation for instrumentation. (42803) Patient taken the operating room and after adequate anesthesia, he was positioned in the right lateral decubitus position left side up for oblique approach to the left side at the L3-4 interspace. Patient was secured to the table with proper positioning checked with fluoroscopic imaging. Preprepped was performed followed by then marking for the incision with oblique incision anterolaterally corresponding to the L3-4 interspace. Prep and drape was performed, a oblique incision was then made in line with the external oblique musculature. After the 17s tissues and fascia, then carefully spreading and dissected down through the abdominal wall musculature. Was able to gain access to the retroperitoneal region immobilizes contents anteriorly. With retractors able to mobilize the tissues away from the disc base at L3-4, our location was confirmed with fluoroscopy. Retractor blades were then set with lighting, secured with a single pin. Discectomy was performed with an anterior lateral annulotomy followed by then removal of disc material using a variety of instruments including trudy, ring curettes, curettes and pituitaries. This process continued to a thorough discectomy and then completed along with utilizing Delarosa elevators with fluoroscopic control moving across the disc base and just past the right lateral margin for mobilization of the disc space. I then inserted a trial elevating his level to improve height followed by an additional trial up to 11 mm. If the level now improved and his height, better visualization was obtained in the disc space, and time was spent moving towards the area of the posterior disc herniation posteriorly, and disc material. To be removed at least partially from the area of the disc herniation. The size cage was then obtained, fusion materials were packed within it to space, and then this was tapped into position using fluoroscopic control. Once in proper position, insertion instrument was released, final images were obtained with the cage in proper position. The operative site was then closed with 0 Vicryl sutures followed by fascial layer closure, skin with 2-0 Vicryl sutures and holley for the skin. Sterile dressing was applied, patient was then repositioned prone on the Fortunato top for the posterior instrumentation. Preprepped was performed followed by then prepping and draping. A post for the navigation system was then inserted into the right iliac crest posteriorly, imaging reflector attachment was attached, and the O-arm was brought in and spun for the appropriate level. Using navigation I then was able to make incision sites for the 4 screws followed first by insertion of a sharp gearshift device which was To start the hole for the pedicle screw followed by the gearshift probe and then combination of either 4.5 or 5.5 taps. The pedicle on the right side for L4 appeared to be significantly smaller than on the left side, so for this reason that the right L4 and 50 mm screw 5.5 mm in diameter was inserted. The remainder levels were also within located tapped utilizing the navigation device, 6.5 millimeter screws were inserted at those locations. Monitoring was then used to confirm all readings greater than 20, final spin was then obtained revealing all hardware to be in proper position. Rods were then inserted followed by setscrews, these were all torqued down properly and checked fluoroscopically to ensure they are in the proper position. The towers were removed, operative site was irrigated followed by closure using 2-0 Vicryl sutures followed by holley for the skin. Sterile dressings were applied, the patient was taken recovery room in satisfactory condition. I attest to the content of the Intraoperative Record and any orders documented therein. Any exceptions are noted below.
== END 2025-04-02 15:15 | disposition home or self-care (01) | DRG 451 ==
LOC: ASU 05:52 → 3W 14:29